=== PATIENT | female | born 1970 | race African-American/Black ===

== ENCOUNTER 2020-06-10 10:09 | Outpatient (CLI) | payer OTHER, SELFPAY ==
--- NOTE | ~2020-06-10 | MM_ITS ---
EXAMINATION: MM screening juliane BI w joy HISTORY: Screening mammogram TECHNIQUE: Craniocaudal and mediolateral oblique 3-D tomosynthesis images were obtained and synthetic 2-D images were generated. CAD analysis was submitted and interpreted. COMPARISON: 06/03/2019, 04/17/2018, 04/05/2017 bilateral digital screening mammogram examinations BREAST PARENCHYMAL COMPOSITION: There are scattered areas of fibroglandular density. FINDINGS: There are scattered bilateral benign calcifications. Benign circumscribed opacity in the mi d to lower outer right breast measuring up to 8 x 4.5 mm is most consistent with a benign intramammar y lymph node, stable. Probable benign intramammary lymph node in the left axillary tail. Small stable probable benign intramammary lymph nodes in the lower outer left breast. There is no evidence of tatum picious mass, calcification, or architectural distortion to suggest malignancy in either breast. Ther e has been no suspicious interval change. IMPRESSION: 1. No mammographic evidence of malignancy. 2. Recommend routine screening mammography in one year. BI-RADS Category 2: Benign finding(s). Reviewed, dictated and finalized at location A. S DEVELOPMENT REPRESENTATIVE
== END 2020-06-10 10:10 | disposition home or self-care (01) ==
LOC: ANHIMG 10:13
PROVIDERS: PCP Internal Medicine; Visit Provider Obstetrics & Gynecology
DX: Z12.31 Encounter for screening mammogram for malignant neoplasm of breast (principal)
CPT/HCPCS: 77063; 77067

== ENCOUNTER 2021-07-08 11:09 | Outpatient (CLI) | payer OTHER, SELFPAY ==
--- NOTE | ~2021-07-08 | MM_ITS ---
EXAMINATION: MM screening juliane BI w joy HISTORY: Screening mammogram TECHNIQUE: Craniocaudal and mediolateral oblique 3-D tomosynthesis images were obtained and synthetic 2-D images were generated. Bilateral rotated lateral cc views. CAD analysis was submitted and interp reted. COMPARISON: 06/10/2020, 06/03/2019, 04/17/2018 bilateral screening mammogram examinations BREAST PARENCHYMAL COMPOSITION: There are scattered areas of fibroglandular density. FINDINGS: Stable 4.7 mm benign-appearing circumscribed lymph node, outer mid upper right breast Suggestion of a 6 mm mass at mid depth central right breast. Diagnostic right mammogram and right too ast ultrasound examination are recommended. Stable circumscribed approximately 9 mm lymph node in the very posterior upper outer left breast. IMPRESSION: 1. 6 mm mass at mid depth in the central right breast; 2. Diagnostic right mammogram and right breast ultrasound examination are recommended. BI-RADS Category 0: Incomplete: Needs additional imaging evaluation. Reviewed, dictated and finalized at location A. CTOR OF GOVERNMENT SALES IMPRESSION: 1. 6 mm mass at mid depth in the central right breast; 2. Diagnostic right mammogram and right breast ultrasound examination are recom mended. BI-RADS Category 0: Incomplete: Needs additional imaging evaluation.
== END 2021-07-08 11:10 | disposition home or self-care (01) ==
LOC: ANHIMG 11:13
PROVIDERS: PCP Internal Medicine; Visit Provider Obstetrics & Gynecology
DX: Z12.31 Encounter for screening mammogram for malignant neoplasm of breast (principal); R92.8 Other abnormal and inconclusive findings on diagnostic imaging of breast
CPT/HCPCS: 77063; 77067

== ENCOUNTER 2021-07-21 13:10 | Outpatient (CLI) | payer OTHER, SELFPAY ==
--- NOTE | ~2021-07-21 | MMUS_ITS ---
EXAMINATION: MM diagnostic juliane RT w joy, US breast RT limited HISTORY: Right breast mass on screening mammogram TECHNIQUE: Additional 3-D tomosynthesis images of the right breast were performed and synthetic 2-D i mages were generated. CAD analysis was submitted and interpreted. High resolution limited right breas t ultrasound was performed. COMPARISON: 07/08/2021, 06/10/2020, 06/03/2019 FINDINGS: MAMMOGRAPHIC FINDINGS: There is a 7 mm oval, low-density, obscured mass at the 9:00 location 7 cm from the nipple. No suspic ious calcification or architectural distortion are identified. ULTRASOUND: There is a 5 mm cyst at the 9:00 location 3 cm from the nipple. IMPRESSION: 1. No mammographic or sonographic evidence of malignancy. 2. Recommend routine screening mammography in one year. BI-RADS Category 2: Benign finding(s). Reviewed, dictated and finalized at location A. D POWER MECHANIC IMPRESSION: 1. No mammographic or sonographic evidence of malignancy. 2. Recommend routine screening mammography in one year. BI-RADS Category 2: Benign finding(s).
== END 2021-07-21 13:11 | disposition home or self-care (01) ==
LOC: ANHIMG 13:11
PROVIDERS: PCP Internal Medicine; Visit Provider Obstetrics & Gynecology
DX: R92.8 Other abnormal and inconclusive findings on diagnostic imaging of breast (principal)
CPT/HCPCS: 76642; 77061; 77065; G0279

== ENCOUNTER 2022-04-30 12:48 | Outpatient (CLI) | payer OTHER, SELFPAY ==
--- NOTE | ~2022-04-30 | MMUS_ITS ---
EXAMINATION: MM diagnostic juliane RT w joy, US breast RT complete HISTORY: Follow-up right breast mass TECHNIQUE: Additional 3-D tomosynthesis images of the right breast were performed and synthetic 2-D i mages were generated. CAD analysis was submitted and interpreted. High resolution complete right adrianna st ultrasound was performed. COMPARISON: Comparison to multiple prior studies sequentially, with oldest reviewed study dated 03/20. BREAST PARENCHYMAL COMPOSITION: The breasts are heterogeneously dense, which may obscure small masses FINDINGS: MAMMOGRAPHIC FINDINGS: There is a lymph node in the mid outer aspect of the right breast, unchanged. No suspicious masses, c alcifications or architectural distortion in the right breast to suggest malignancy. ULTRASOUND: Complete bilateral US of all 4 quadrants of the right and retroareolar region was reviewed. At 3:00 t here is a 4 mm cyst. 9:00, 7 cm from the nipple there is a 9 mm intramammary lymph node corresponding to the mammographic finding. No suspicious masses to suggest malignancy. IMPRESSION: 1. No evidence for malignancy in the right breast. Benign findings. 2. Routine yearly screening mammogram and regular clinical breast examination are recommended. BI-RADS Category 2: Benign finding(s). Reviewed, dictated and finalized at location B. NCED PRACTICE PROVIDER IMPRESSION: 1. No evidence for malignancy in the right breast. Benign findings. 2. Routine yearly screening mammogram and regular clinical breast examination a re recommended. BI-RADS Category 2: Benign finding(s).
== END 2022-04-30 12:49 | disposition home or self-care (01) ==
LOC: ANHIMG 12:53
PROVIDERS: PCP Internal Medicine
DX: R92.8 Other abnormal and inconclusive findings on diagnostic imaging of breast (principal); C34.2 Malignant neoplasm of middle lobe, bronchus or lung
CPT/HCPCS: 76641; 77061; 77065; G0279

== ENCOUNTER 2022-07-27 10:16 | Outpatient (CLI) | payer OTHER, SELFPAY ==
--- NOTE | ~2022-07-27 | MM_ITS ---
EXAMINATION: MM screening juliane BI w joy HISTORY: Screening mammogram TECHNIQUE: Craniocaudal, rotated lateral craniocaudal and mediolateral oblique 3-D tomosynthesis imag es were obtained and synthetic 2-D images were generated. CAD analysis was submitted and interpreted. COMPARISON: 04/30/2022 diagnostic right mammogram and complete right breast ultrasound examination 3. right diagnostic mammogram and limited right breast ultrasound To, 06/10/2020, 06/03/2019 bilateral screening mammogram examinations BREAST PARENCHYMAL COMPOSITION: There are scattered areas of fibroglandular density. FINDINGS: There is no evidence of suspicious mass, calcification, or architectural distortion to sugg est malignancy in either breast. There has been no suspicious interval change. IMPRESSION: 1. No mammographic evidence of malignancy. 2. Recommend routine screening mammography in one year. BI-RADS Category 1: Negative Reviewed, dictated and finalized at location B. RVISOR ELECTRIC MOTOR TESTING
== END 2022-07-27 10:17 | disposition home or self-care (01) ==
LOC: ANHIMG 10:20
PROVIDERS: PCP Internal Medicine; Visit Provider Obstetrics & Gynecology
DX: Z12.31 Encounter for screening mammogram for malignant neoplasm of breast (principal)
CPT/HCPCS: 77063; 77067

== ENCOUNTER 2023-09-02 07:25 | Outpatient (CLI) | payer OTHER, SELFPAY ==
--- NOTE | ~2023-09-02 | MM_ITS ---
EXAMINATION: MM screening juliane BI w joy HISTORY: Screening TECHNIQUE: Craniocaudal and mediolateral oblique 3-D tomosynthesis images were obtained and synthetic 2-D images were generated. CAD analysis was submitted and interpreted. COMPARISON: Comparison to multiple prior studies sequentially, with oldest reviewed study dated 06/10. BREAST PARENCHYMAL COMPOSITION: Dense: The breasts are heterogeneously dense, which may obscure small masses FINDINGS: There is no evidence of suspicious mass, calcification, or architectural distortion to sugg est malignancy in either breast. There has been no suspicious interval change. IMPRESSION: 1. No mammographic evidence of malignancy. 2. Recommend routine screening mammography in one year. BI-RADS Category 1: Negative Reviewed, dictated and finalized at location A.
== END 2023-09-02 07:26 | disposition home or self-care (01) ==
LOC: ANHIMG 07:34
PROVIDERS: PCP Internal Medicine; Visit Provider Obstetrics & Gynecology
DX: Z12.31 Encounter for screening mammogram for malignant neoplasm of breast (principal)
CPT/HCPCS: 77063; 77067

== ENCOUNTER 2024-09-05 09:13 | Outpatient (CLI) | payer OTHER, SELFPAY ==
--- NOTE | ~2024-09-05 | MM_ITS ---
EXAMINATION: MM screening juliane BI w joy HISTORY: Screening TECHNIQUE: Craniocaudal and mediolateral oblique 3-D tomosynthesis images were obtained and synthetic 2-D images were generated. CAD analysis was submitted and interpreted. COMPARISON: Comparison to multiple prior studies sequentially, with oldest reviewed study dated 06/10. BREAST PARENCHYMAL COMPOSITION: Not dense: There are scattered areas of fibroglandular density. FINDINGS: There is developing asymmetry in the upper outer quadrant of the right breast, middle third . The left breast is stable without evidence for malignancy. IMPRESSION: 1. Developing asymmetry in the upper outer quadrant of the right breast. 2. Additional mammographic views and possible breast ultrasound are recommended. BI-RADS Category 0: Incomplete: Needs additional imaging evaluation. Reviewed, dictated and finalized at location A. IMPRESSION: 1. Developing asymmetry in the upper outer quadrant of the right breast. 2. Additional mammographic views and possible breast ultrasound are recommended . BI-RADS Category 0: Incomplete: Needs additional imaging evaluation.
--- OUTSIDE RECORDS SUMMARY | 2024-09-05 09:16 | XMS_ITS | Encounter Summary ---
Author Organization [facility] Healthcare Address [address] [place] [address] Care Team Providers Care Haunted History Tour Guide Name Role Phone Eber Tomlinson MD Primary Care Provider [phone] Long Mehta MD Unavailable Héctor Sanford MD Unavailable [phone] Se Torres MD Unavailable [phone] Huong Klein NP Unavailable [phone] Foster Borrero MD PhD Unavailable [phone] Sergio He MD Unavailable [phone] Eber Tomlinson MD Primary Care Provider [phone] Encounter Details Date Type Department Care Team (Late st Contact Info) Description 06/24/2024 Documentation [facility] [address] [facility] [address] [place] [address] Gilda Galloway RMA Social History Tobacco Use Types Packs/Day Years Used Date Smoking Tobacco: Never Smokeless Tobacco: Never Alcohol Use Standard Drinks/Week Comments Never 0 (1 standard drink = 0.6 oz pur e alcohol) AUDIT-C Answer Date Recorded Frequency of Alcohol Consumption Not on file 04/21/2024 Q2: How many drinks containi ng alcohol do you have on a typical day when you are drinking? 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 Gender Identity Not on file Sexual Orientation Not on file documented as of this encounter Plan of Treatment Not on file documented as of this encounter Visit Diagnoses Not on filedocumented in this encounter Care Teams Haunted History Tour Guide Relationship Specialty Start Date End Date Eber Tomlinson MD PCP - General 11/24/15 07/21/24 Eber [place] [address] [place] [address] PCP - General Internal Medicine 07/22/24 Long Mehta MD [address] [facility] [address] [place] [address] Consulting Physician Radiation Oncology 10/05/19 Héctor Sanford MD [address] [place] [address] [place] [address] Consulting Physician Endocrinology 08/08/20 Se Torres MD [address] [place] [address] [place] [address] Referring Physician Neurosurgery 08/08/20 Huong Klein, SNATH HANDLE ASSEMBLER [address] [place] [address] [place] [address] Nurse Practitioner Medical Oncology 04/05/21 Foster Borrero MD PhD [address] [place] [address] Consulting Physician Medical Oncology 09/19/21 Sergio He MD [address] [address] Referring Physician Obstetrics and Gynecology 04/10/22 documented as of this encounter
--- OUTSIDE RECORDS SUMMARY | 2024-09-05 09:16 | XMS_ITS | Encounter Summary ---
Author Organization [facility] Address [address] [place] [address] Phone Care Team Providers Care Track Repairer Name Role Phone Eber Tomlinson MD Primary Care Provider [phone] Long Mehta MD Unavailable Héctor Sanford MD Unavailable [phone] Se Torres MD Unavailable [phone] Huong Klein NP Unavailable [phone] Foster Borrero MD PhD Unavailable Sergio He MD Unavailable [phone] Eber Tomlinson MD Primary Care Provider Encounter Details Date Type Department Care Team (Late st Contact Info) Description 04/24/2024 Social Work [facility] Oncology [facility] [address] [place] [address] Catalina Galicia LCSW Social History Tobacco Use Types Packs/Day Years [...] on file 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 Gender Identity Not on file Sexual Orientation Not on file documented as of this encounter Plan of Treatment Not on file documented as of this encounter Visit Diagnoses Not on filedocumented in this encounter Care Teams Track Repairer Relationship Specialty Start Date End Date Eber Tomlinson MD PCP - General 11/24/15 07/21/24 Eber Tomlinson MD [address] [place] [address] PCP - General Internal Medicine 07/22/24 Long Mehta MD [address] [facility] [address] [place] [address] Consulting Physician Radiation Oncology 10/05/19 Héctor Sanford MD [address] [place] [address] [place] [address] Consulting Physician Endocrinology 08/08/20 Se Torres MD [address] [place] [address] [place] [address] Referring Physician Neurosurgery 08/08/20 Huong Klein, DIRECTOR MEDICAL WRITING [address] [place] [address] Nurse Practitioner Medical Oncology 04/05/21 Foster Borrero MD PhD [facility] [address] Consulting Physician Medical Oncology 09/19/21 Sergio eH MD [address] [address] Referring Physician Obstetrics and Gynecology 04/10/22 documented as of this encounter
--- OUTSIDE RECORDS SUMMARY | 2024-09-05 09:16 | XMS_ITS | Clinical Summary ---
Author Organization [facility] [employer] Address [address] [place] [address] Phone Care Team Providers Care Shipping And Receiving Specialist Name Role Phone Long Mehta MD Unavailable Héctor Sanford MD Unavailable [phone] Se Torres MD Unavailable [phone] Huong Klein NP Unavailable [phone] Foster Borrero MD PhD Unavailable Sergio He MD Unavailable [phone] Eber Tomlinson MD Primary Care Provider [phone] Allergies No known active allergies Medications cholecalcifer ol (VITAMIN D-3) 2000 unit capsule Take 1 capsule (2,000 Units total) by mouth daily Active levETIRAcetam (KEPPRA) 500 mg tablet Take 1 tablet by mouth twice daily 180 tablet 3 10/17/19 24 025 Active UNABLE TO FIND daily Med Name:weight loss gummies Active amLODIPine (NORVASC) 2.5 mg tabletIndicat ions:Hyperten rodrick, essential Take 1 tablet by mouth once daily 90 tablet 1 06/26/19 25 Active potassium chloride ER 10 mEq CR tabletIndicat ions:Hypokale milena Take 1 tablet by mouth twice daily 60 tablet 08/10/19 25 Active lorlatinib (Lorbrena) 25 mg tabletIndicat ions:Malignan t neoplasm of middle lobe of right lung (HCC),Maligna nt neoplasm metastatic to brain (HCC) TAKE TWO TABLETS (50MG) BY MOUTH EVERY OTHER DAY . TAKE AT APPROXIMATELY THE SAME TIME EACH DAY WITH 8 OUNCES OF WATER 30 tablet 1 08/18/19 25 Active lorlatinib (LORBRENA) 25 mg tabletIndicat ions:Malignan t neoplasm of middle lobe of right lung (HCC),Maligna nt neoplasm metastatic to brain (HCC) Take 2 tablets (50 mg total) by mouth every other day Take at approximately the same time each day with 8 ounces of water. 30 tablet 1 06/25/19 25 025 Discontinued potassium chloride ER 10 mEq CR tabletIndicat ions:Hypokale milena Take 1 tablet by mouth twice daily 60 tablet 07/06/19 25 025 Discontinued Active Problems Problem Noted Date Diagnosed Date Vitamin D deficiency 04/08/2020 Assessment & Plan (02/08/2023 10:16 AM CDT): Patient on OTC vitamin D-3 Last GFR 98 on 01/22/23 - continue same dose of Vitamin D-3 Assessment & Plan (08/03/2022 10:28 AM CDT): Patient on OTC vitamin D-3 Last GFR 98 on 07/26/22 - continue same dose of Vitamin D-3 Assessment & Plan (02/02/2022 2:00 PM CDT): Patient on OTC vitamin D-3 Last calcium was 10.4 with GFR 104 on 01/10/22 - continue same dose of Vitamin D-3 Assessment & Plan (02/03/2021 3:53 PM CDT): Patient on OTC vitamin D-3 Last calcium was 9.6 with normal GFR 89 on 01/06/21 - continue same dose of Vitamin D-3 Assessment & Plan (07/15/2020 3:26 PM CONVEYOR BELT REPAIRER): Low vitamin D of 25 in February/2020 Plan: Continue Vitamin D3- 2000 international units/day Check level with next blood test Assessment & Plan (04/08/2020 3:31 PM CONVEYOR BELT REPAIRER): Low vitamin D of 25 in February/2020 Plan: Start Vitamin D3- 2000 international units/day We will recheck levels in 3 month Thyroid nodule 03/18/2020 Assessment & Plan (02/08/2023 10:05 AM CDT): Patient with family history of thyroid disease Found to have thyroid nodule on CT scan Thyroid Ultrasound on 04/07/20 Thyroid cysts 6-7 mm Patient is clinically euthyroid TSh was 1.35 on 04/07/20 Plan: We will monitor clinically. Assessment & Plan (08/03/2022 10:31 AM CDT): Patient with family history of thyroid disease Found to have thyroid nodule on CT scan Thyroid Ultrasound on 04/07/20 Thyroid cysts 6-7 mm Patient is clinically euthyroid TSh was 1.35 on 04/07/20 Plan: We will monitor clinically. Assessment & Plan (02/02/2022 2:00 PM CDT): Patient with family history of thyroid disease Found to have thyroid nodule on CT scan Thyroid Ultrasound on 04/07/20 Thyroid cysts 6-7 mm Patient is clinically euthyroid TSh was 1.35 on 04/07/20 Plan: We will monitor clinically. Assessment & Plan (02/03/2021 3:51 PM CDT): Patient with family history of thyroid disease Found to have thyroid nodule on CT scan Thyroid Ultrasound on 04/07/20 Thyroid cysts 6-7 mm Patient is clinically euthyroid TSh was 1.35 on 04/07/20 Plan: We will monitor clinically. Assessment & Plan (07/15/2020 3:27 PM CONVEYOR BELT REPAIRER): Patient with family history of thyroid disease Found to have thyroid nodule on CT scan Thyroid Ultrasound on 04/07/20 Thyroid cysts 6-7 mm Patient is clinically euthyroid TSh was 1.35 on 04/07/20 Plan: Explained to patient the findings on Ultrasound The cyst/nodule is small and looks benign The abnormality can be monitored and if needed can have ultrasound in one year Assessment & Plan (04/08/2020 3:33 PM CONVEYOR BELT REPAIRER): Patient with family history of thyroid disease Found to have thyroid nodule on CT scan Thyroid Ultrasound on 04/07/20 Thyroid cysts 6-7 mm Patient is clinically euthyroid TSh was 1.35 on 04/07/20 Plan: Explained to patient the findings on Ultrasound The cyst/nodule is small and looks benign The abnormality can be monitored and if needed can have ultrasound in one year Assessment & Plan (03/18/2020 1:43 PM CDT): Recent thyroid nodule noted on CT scan of her chest. This finding was compared to previous CT scans in November and September in this is a new finding. On exam patient appears to have on enlarged thyroid. She has also had weight gain. Patient of the thyroid ultrasound schedule at [facility] for March 24, 2020. Referral to Endocrinology. Hyperparathyroidism 03/18/2020 Assessment & Plan (04/17/2024 5:57 PM CONVEYOR BELT REPAIRER): Renal function calcium level in normal range no additional testing or therapy indicated Assessment & Plan (03/31/2023 5:31 PM CONVEYOR BELT REPAIRER): Patient's conditions min stable for last 3 years he has advised the patient she may follow-up with primary care I have reviewed Dr. Sanford notes will continue to monitor his outlined in his notes. Calcium and kidney functions annualy Assessment & Plan (02/08/2023 10:15 AM CDT): History of Elevated PTH of 76 on 03/04/20 Normal calcium of 9.9 Low Vitamin D of 25 Normal GFR 68 This is most probably secondary to vitamin D deficiency Last PTH was normal at 38 on 08/05/20 Calcium went down from 10.8 to 9.9 on 01/22/23 since she has been off HCTZ Plan No follow up needed with me Check calcium and kidney functions per PCP or once /year Assessment & Plan (08/03/2022 10:30 AM CDT): History of Elevated PTH of 76 on 03/04/20 Normal calcium of 9.9 Low Vitamin D of 25 Normal GFR 68 This is most probably secondary to vitamin D deficiency Last PTH was normal at 38 on 08/05/20 Last calcium was high at 10.8 Plan This could be caused by HCTZ We will check with PCP if he can change HCTZ to another diuretic like lasix or different BP medication We will monitor calcium levels. Assessment & Plan (02/02/2022 2:09 PM CDT): History of Elevated PTH of 76 on 03/04/20 Normal calcium of 9.9 Low Vitamin D of 25 Normal GFR 68 This is most probably secondary to vitamin D deficiency Last PTH was normal at 38 on 08/05/20 Plan Continue Vitamin D 3 Discontinue multivitamin. We will monitor calcium levels. Assessment & Plan (02/03/2021 3:52 PM CDT): History of Elevated PTH of 76 on 03/04/20 Normal calcium of 9.9 Low Vitamin D of 25 Normal GFR 68 This is most probably secondary to vitamin D deficiency Last TH was normal at 38 on 08/05/20 Plan Continue Vitamin D 3 Assessment & Plan (07/15/2020 3:25 PM CONVEYOR BELT REPAIRER): Elevated PTH of 76 on 03/04/20 Normal calcium of 9.9 Low Vitamin D of 25 Normal GFR 68 This is most probably secondary to vitamin D deficiency Plan Continue Vitamin D 3 We will monitor calcium and PTH Assessment & Plan (04/08/2020 3:30 PM CONVEYOR BELT REPAIRER): Elevated PTH of 76 on 03/04/20 Normal calcium of 9.9 Low Vitamin D of 25 Normal GFR 68 This is most probably secondary to vitamin D deficiency Plan We will correct vitamin D level We will monitor calcium and PTH Assessment & Plan (03/18/2020 1:48 PM CDT): Patient's saw her pit laborer oncologist at [facility] on 03/04/2020 in his note he references to she has a out slightly elevated PTH/68 and low vitamin-D/25 and states he wants her to follow-up with Endocrinology. This patient has lung cancer with metastasis to her brain. She lives in [place] and she does not drive at this time secondary to seizure and is convenient for her to go to [facility] for Endocrinology appointment as opposed going back to [place].. Patient also has a thyroid nodule of recent finding of a CT scan. Thyroid ultrasound scheduled for 03/24/2020. Patient is referred to Endocrinology for both reasons. Malignant neoplasm of middle lobe of right lung 04/09/2019 Cancer Staging:Clinical stage from 04/09/2019:Stage IVB(cT4, cN2, pM1c) - Signed by Idalmis Webber MD on 04/09/2019 Malignant neoplasm metastatic to brain 9 Family history of colon cancer 03/07/2018 Assessment & Plan (09/16/2020 5:36 PM CDT): Patient is referred for colonoscopy secondary to family history as well as recent PET scan shows activity in the anal area. Assessment & Plan (03/07/2018 5:29 PM CDT): Patient's shingle catcher referred this patient a [facility] for colonoscopy. Approval is pending. Recommendations by some aches versus get a colonoscopy starting age 45. THIS PATIENT HAD A AND TO AGE 52 FROM COLON CANCER. Patient also given information regarding colon Guard. Other abnormal glucose 11/30/2016 Assessment & Plan (03/13/2019 1:03 PM CDT): Patient's abnormal HgbA1c of 5.7 on this occasion previously 5.8 may be related to the effects of hydrochlorothiazide. I discontinue hydrochlorothiazide when she finished her 90 day supply and will replace with lisinopril. We follow HgbA1c in 6 months. Assessment & Plan (03/07/2018 5:28 PM CDT): Patient's his previous hemoglobin HgbA1c was 5.8 she has put on 9 lb since her last visit. Will check hemoglobin HgbA1c today. Patient advised body mass index is 27.9 to his equivalent to a classification overweight but not obese Assessment & Plan (11/30/2016 10:17 AM CDT): Patient previously had a slightly elevated glucose and a hemoglobin HgbA1c was borderline. Patient has lost weight will repeat hemoglobin HgbA1c today. Fact weight loss been close to 20 pounds with a past year on purpose weight loss. Hypertension, essential 11/30/2016 Assessment & Plan (04/17/2024 6:00 PM CONVEYOR BELT REPAIRER): Blood pressure 140/88 pressures at home have been better patient's blood pressure still is in no acceptable range will continue amlodipine 2.5 mg daily. Patient's renal functions reviewed within normal range. Assessment & Plan (09/27/2023 3:38 PM CDT): Patient's blood pressure remains well controlled patient is tolerating medications. She is taking amlodipine 2.5 mg daily. Assessment & Plan (03/31/2023 5:27 PM CONVEYOR BELT REPAIRER): Hypertension very well controlled patient tolerating medications no change in therapy. Assessment & Plan (02/08/2023 10:17 AM CDT): Controlled with medication - continue treatment plan per PCP Assessment & Plan (11/10/2022 2:20 PM CDT): Patient's hypertension is controlled she does any edema she would like to change from a diuretic to a different blood pressure medication. Diuretics Mouna going to the bathroom too often. Changes person from furosemide 40 mg a day to amlodipine 2.5 mg per day. Patient's advised she may get a small degree of swelling with the amlodipine as a side effect this sudden him we can adjustments to in the event occurs patient has no symptoms referable to hypertension. Assessment & Plan (09/30/2021 1:46 PM CDT): Hypertension remains well control on present medications Assessment & Plan (03/31/2021 6:28 PM CONVEYOR BELT REPAIRER): Blood pressure slightly decreased today she feels well. Continue present therapy Assessment & Plan (09/16/2020 5:34 PM CDT): Blood pressure well controlled patient is now on potassium secondary to hydrochlorothiazide medication for blood pressure. Concerns regarding this. Advised her I will repeat potassium level next month.. Like to minimize number medication she is takes she is advised the orange juice may just as well as potassium tablet. Assessment & Plan (03/18/2020 1:53 PM CDT): Blood pressure well controlled patient is tolerating present medication no change in therapy. Patient is on hydrochlorothiazide 25 mg daily. Assessment & Plan (03/13/2019 1:02 PM CDT): Patient's blood pressure is very well controlled tolerating medications.. She is on hydrochlorothiazide she runs slightly abnormal glucose which can be a result of hydrochlorothiazide.. At this time discontinue hydrochlorothiazide when she finishes her 90 day supply.. This will be replaced with lisinopril 5 mg daily. Repeat HgbA1c is 6 months at her next visit. Patient's advised the reason for the change in the fact that lisinopril has a 10% chance cause a cough. We also discussed the angioedema this very very rare with lisinopril. Assessment & Plan (03/07/2018 5:27 PM CDT): Hypertension is unchanged. Continue current treatment regimen. Dietary sodium restriction. Regular aerobic exercise. Continue current medications. Blood pressure will be reassessed at the next regular appointment. Assessment & Plan (11/30/2016 10:16 AM CDT): Hypertension is unchanged. Continue current treatment regimen. Blood pressure will be reassessed at the next regular appointment. Patient's blood pressure well controlled, systolic approximately 20 points lower at home that is a new office, diastolics about 10 points lower at home than in his in office. Preventative health care 11/30/2016 Assessment & Plan (09/27/2023 3:37 PM CDT): History and physical exam completed health risk assessment health maintenance reviewed and addressed. Oncology visit notes reviewed. New change since her last visit with me she is having some left lower leg weakness sensation of feeling off balance. She has been referred to physical therapy [facility] this has been 2 months she has not been able to get in to see them appears though his so mad of insurance approval. No other new problems patient has not gotten her immunization is suggested a year ago. This may also relate to her insurance. Assessment & Plan (06/22/2022 4:55 PM CONVEYOR BELT REPAIRER): 51-year-old lady here for annual exam her last visit with me she is had to retire medical reasons. She took neuropsychological testing failed exam. Press patient's is explain to me is will be in effect till August. We will be looking for new insurance following that. She will be going on long-term disability forms to be mailed to each physician. Underlying illnesses metastatic brain cancer from her lungs. Patient feels well main problem is speech.. Has gained some I do not know if his secondary to inactivity after quitting job or medication related Assessment & Plan (09/30/2021 1:45 PM CDT): History and physical completed patient's health risk assessment health maintenance reviewed. Patient has metastatic lung cancer to her brain. She was having side effects of medication reviewed recent Oncology report. Patient advised me his speech is clearing up she is doing much better. She has a follow-up appoint with Oncology next week. All side of her metastatic lung cancer in medication problems remainder of her exam and history is benign. Assessment & Plan (03/18/2020 1:42 PM CDT): History and physical completed health risk assessment health maintenance reviewed in addressed. Patient recently start shingle catcher was records and he not yet available in the chart.. Patient's flu shot is updated for 2019. Patient's history is significant for malignant neoplasm with metastasis to her brain. Patient is doing very very well she has return to work after being out of work 6 months. She is presently on restrictions for driving for the next 6 months due possible seizure activity. Assessment & Plan (03/13/2019 1:01 PM CDT): Patient physical completed patient's health risk assessment health maintenance reviewed. Patient given Tdap today. Request the patient's records from gynecology is update her Pap smear results. Assessment & Plan (03/07/2018 5:31 PM CDT): Patient exam was completed unremarkable.. Discussion regarding body mass index were discussion regarding colon cancer she has a family member at a young age from colon cancer. Continue to monitor hemoglobin HgbA1c continue treat her blood pressure. Assessment & Plan (11/30/2016 10:18 AM CDT): CBC, CMP and fasting lipid profile admission for preventive exam patient also has hypertension well controlled Encounters Date Type Department Care Team Description 08/18/2024 Orders Only [facility] Oncology [address] [place] [address] [address] [place] [address] Foster Borrero MD PhD 08/17/2024 Orders Only [facility] Oncology [address] [place] [address] [address] [place] [address] Isela Ayala RN 08/07/[address] [facility] Neurosurgery [facility] Floor 1, [address] [place] [address] Se Torres MD 08/07/[address] [facility] Neurosurgery [facility] Floor 1, [address] [place] [address] Se Torres MD 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) 08/06/2024 2:[address] [facility] Neurosurgery [facility] Floor 1, [address] [place] [address] Se Torres MD 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) 08/04/2024 2:28 PM CDT - 08/04/2024 11:59 PM CDT Hospital Encounter [facility] [address] [place] [id number] Se Torres MD Malignant neoplasm metastatic to brain (HCC) Discharge Disposition: Discharge to home or self care 07/21/2024 1:15 PM CONVEYOR BELT REPAIRER Office Visit [facility] Oncology [address] [place] [address] Foster Borrero MD PhD 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); Malignant neoplasm of middle lobe of right lung (HCC) 07/14/2024 7:48 AM CONVEYOR BELT REPAIRER - 07/14/2024 11:59 PM CONVEYOR BELT REPAIRER Hospital Encounter [facility] [address] [place] [id number] Malignant neoplasm of middle lobe of right lung (HCC) Discharge Disposition: Discharge to home or self care 07/14/2024 7:45 AM CONVEYOR BELT REPAIRER Lab [address] [address] Malignant neoplasm of middle lobe of right lung (HCC) 07/14/[address] [facility] Physicians [facility] Oncology [address] [facility] [address] [place] [address] Rashmi Wilder, [facility] 07/13/[address] [address] Yasmine Radn 06/25/2024 Orders Only [facility] Oncology [address] [place] [address] Foster Borrero MD PhD 06/24/2024 Documentation [facility] [address] [facility] [address] [place] [address] Gilda Galloway RMA from Last 3 Months Immunizations Immunization Administration Dates Next Due Influenza, Quadrivalent, Abida l Culture-based MDCK, Preservative Free, Antibiotic Free, Intramuscular 03/04/2020 Influenza, Quadrivalent, Spl it, Preservative Free, Intramuscular 03/31/2021 Influenza, Unspecified 04/03/2024(Deferred: Marika ent Refused) Moderna SARS-CoV-2 Monovalen t Vaccination (12+ YRS) 10/18/2020,10/18/2020,09/20/2020,09/20 Tdap 03/13/2019 Surgical History Surgery Date Site/Laterality Comments SECTION COLONOSCOPY 12/29/2020 1st Medical History Medical History Date Comments Cancer (HCC) Lung cancer metastatic to brain (HCC) Family History Medical History Relation Name Comments Hypertension Maternal Grandmother Hypertension Mother Colon cancer Mother's Sister Thyroid disease Sister Relation Name Status Comments Maternal Grandmother Mother Mother's Sister Sister Social History Tobacco Use Types Packs/Day Years Used Date Smoking Tobacco: Never Smokeless Tobacco: Never Tobacco Cessation:Counseling Given: Not Answered Alcohol Use Standard Drinks/Week Comments Never 0 [...] on file Legal Sex Female 7:47 AM CONVEYOR BELT REPAIRER Gender Identity Not on file Sexual Orientation Not on file Obstetrics History Last Filed Vital Signs Vital Sign Reading Time Taken Comments Blood Pressure 129/84 07/21/2024 1:24 PM CONVEYOR BELT REPAIRER Pulse 87 07/21/2024 1:24 PM CONVEYOR BELT REPAIRER Temperature 37.3 C (99.2 F) 07/21/2024 1:24 PM CONVEYOR BELT REPAIRER Respiratory Rate 18 07/21/2024 1:24 PM CONVEYOR BELT REPAIRER Oxygen Saturation 98% 07/21/2024 1:24 PM CONVEYOR BELT REPAIRER Inhaled Oxygen Concentration - - Weight 93.1 kg (205 lb 3.2 oz) 07/21/2024 1:24 P M CONVEYOR BELT REPAIRER no shoes Height 167.6 cm (5' 6 ) 07/21/2024 1:24 PM CONVEYOR BELT REPAIRER Body Mass Index 33.12 07/21/2024 1:24 PM CONVEYOR BELT REPAIRER Plan of Treatment Health Maintenance Due Date Last Done Comments Cervical Cancer Screening 1970 Pneumococcal vaccine <65 (1 of 2 - PCV) 12/16/1991 Zoster Vaccine (1 of 2) 12/16/1991 Breast Cancer Screening-Mammogram 04/30/2023 022 Covid-19 Vaccine (2023-2 5 season) 2024 10/18/2020, 10/18/2020, 09/20/2020, Additional history exists Depression Screening 09/26/2024 09/27/2023, 06/22/2022, 09/29/2021, Additional history exists Regular Well Visit/Exam 18-64 09/26/2024, 06/22/2022, 09/29/2021, Additional history exists Influenza Vaccine (Season Ended) 2025 03/31/20 21, 03/04/2020 DTaP/Tdap/Td Vaccine (2 - Td or Tdap) 03/13/2029 03/13/2019 Colon Cancer Screening-Colonoscopy 12/29/2030 12/29/2020 Hepatitis B Screening Discontinued Hepatitis C Screening Discontinued Procedures Procedure Name Priority Date/Time Associated Diagnosis Comments MRI BRAIN W WO CONTRAST Schedule Routine, Read Routine (OP Routine) 08/04/2024 4:48 PM CDT Malignant neoplasm metastatic to brain (HCC) CT CHEST ABDOMEN PELVIS W CONTRAST Schedule Routine, Read Routine (OP Routine) 07/14/2024 9:03 AM CONVEYOR BELT REPAIRER Malignant neoplasm of middle lobe of right lung (HCC) EGFR Routine 07/14/2024 7:54 AM CONVEYOR BELT REPAIRER Malignant neoplasm of middle lobe of right lung (HCC) DIFFERENTIAL AUTO Routine 07/14/2024 7:5 4 AM CONVEYOR BELT REPAIRER Malignant neoplasm of middle lobe of right lung (HCC) CBC WITH AUTO DIFFERENTIAL Routine 07/14/2024 7:54 AM CONVEYOR BELT REPAIRER Malignant neoplasm of middle lobe of right lung (HCC) COMPREHENSIVE METABOLIC PANEL Routine 07/14/2024 7:54 AM CONVEYOR BELT REPAIRER Malignant neoplasm of middle lobe of right lung (HCC) COLONOSCOPY 12/29/2020 7:27 AM CDT from Last 3 Months or Most Recently Relevant to Health Maintenance Results * MRI Brain W WO Contrast (08/04/2024 4:48 PM CDT) Anatomical Region Laterality Modality Head and Neck N/A Magnetic Resonan ce 08/05/2024 9:10 AM CDT Impressions 08/05/2024 10:58 AM CDT 1. Treated right insular and left occipital lesions are unchanged. 2. No evidence of new intracranial metastatic disease. 3. Heterogeneous appearance of the calvarium with subcentimeter foci of enhancement is unchanged for at least a year. Findings favor postradiation changes of the calvarium, however, metastatic disease is not completely excluded. It would be unusual for calvarial metastases in the absence of further osseous metastatic disease in the axial skeleton. Dictated by: Esteban Izquierdo D.O. The radiology attending physician has personally reviewed this study, and had reviewed and/or edited this written report and agrees with it. Electronically signed by: Deborah Arroyo M.D. Narrative 08/05/2024 10:58 AM CDT EXAMINATION: Magnetic resonance imaging (MRI) of the brain and brainstem without and with contrast HISTORY: 53 years-old Female with Brain metastases, assess treatment response. TECHNIQUE: Multiplanar multi-weighted MRI of the brain and brainstem was performed without and with intravenous contrast using the general brain protocol. Contrast information: 18 mL Gadoterate Meglumine IV COMPARISON: Multiple priors, the most recent dated 03/31/2024, 01/07/2024 and 09/30/2023 FINDINGS: Redemonstration of an unchanged 11 mm heterogeneously enhancing T1/T2 isointense lesion within the right french radiata and extending inferiorly to involve the insula (series 35, image 110). Redemonstration of an unchanged ill-defined 2 mm enhancing left occipital lesion (series 35, image 93). No new intracranial enhancement is identified. Both lesions demonstrate superimposed susceptibility artifact related to prior blood products. No significant surrounding FLAIR hyperintensity. Heterogeneous appearance of the calvarium with subcentimeter foci of enhancement. The superior sagittal sinus demonstrates normal venous flow. The corpus callosum is normal in shape and signal intensity. The posterior fossa is unremarkable. The pituitary and sella are normal. The brainstem and craniocervical junction are unremarkable. Fatty marrow signal within the clivus and calvarium is likely related to radiation changes. Diffusion weighted images reveal no hyperintensities to suggest acute cerebral infarction. Moderate diffuse cerebral volume loss, with expected ex vacuo dilatation of the ventricles. Scattered periventricular and subcortical white matter punctate foci of T2/FLAIR hyperintensity are nonspecific and may represent sequela of chronic small vessel ischemic disease. Cavum veli interpositi. The paranasal sinuses are normal. The visualized portions of the mastoids are unremarkable. The orbits appear normal. Normal flow voids are demonstrated in the carotid arteries and basilar artery. Procedure Note Deborah Arroyo MD - 08/05/2024 EXAMINATION: Magnetic resonance imaging (MRI) of the brain and brainstem without and with contrast HISTORY: 53 years-old Female with Brain metastases, assess treatment response. TECHNIQUE: Multiplanar multi-weighted MRI of the brain and brainstem was performed without and with intravenous contrast using the general brain protocol. Contrast information: 18 mL Gadoterate Meglumine IV COMPARISON: Multiple priors, the most recent dated 03/31/2024, 01/07/2024 and 09/30/2023 FINDINGS: Redemonstration of an unchanged 11 mm heterogeneously enhancing T1/T2 isointense lesion within the right french radiata and extending inferiorly to involve the insula (series 35, image 110). Redemonstration of an unchanged ill-defined 2 mm enhancing left occipital lesion (series 35, image 93). No new intracranial enhancement is identified. Both lesions demonstrate superimposed susceptibility artifact related to prior blood products. No significant surrounding FLAIR hyperintensity. Heterogeneous appearance of the calvarium with subcentimeter foci of enhancement. The superior sagittal sinus demonstrates normal venous flow. The corpus callosum is normal in shape and signal intensity. The posterior fossa is unremarkable. The pituitary and sella are normal. The brainstem and craniocervical junction are unremarkable. Fatty marrow signal within the clivus and calvarium is likely related to radiation changes. Diffusion weighted images reveal no hyperintensities to suggest acute cerebral infarction. Moderate diffuse cerebral volume loss, with expected ex vacuo dilatation of the ventricles. Scattered periventricular and subcortical white matter punctate foci of T2/FLAIR hyperintensity are nonspecific and may represent sequela of chronic small vessel ischemic disease. Cavum veli interpositi. The paranasal sinuses are normal. The visualized portions of the mastoids are unremarkable. The orbits appear normal. Normal flow voids are demonstrated in the carotid arteries and basilar artery. IMPRESSION: 1. Treated right insular and left occipital lesions are unchanged. 2. No evidence of new intracranial metastatic disease. 3. Heterogeneous appearance of the calvarium with subcentimeter foci of enhancement is unchanged for at least a year. Findings favor postradiation changes of the calvarium, however, metastatic disease is not completely excluded. It would be unusual for calvarial metastases in the absence of further osseous metastatic disease in the axial skeleton. Dictated by: Esteban Izquierdo D.O. The radiology attending physician has personally reviewed this study, and had reviewed and/or edited this written report and agrees with it. Electronically signed by: Deborah Arroyo M.D. Se Torres MD IM MRI PROCEDURES Final Re sult * CT chest abdomen pelvis with contrast (07/14/2024 9:03 AM CONVEYOR BELT REPAIRER) Anatomical Region Laterality Modality Body N/A Computed Tomogra phy 07/17/2024 3:42 PM CONVEYOR BELT REPAIRER Narrative 07/17/2024 4:44 PM CONVEYOR BELT REPAIRER EXAM DESCRIPTION: CT CHEST ABDOMEN PELVIS W CONTRAST REASON FOR STUDY: Restaging of lung cancer Restaging of lung cancer Hx of brain cancer diagnosed in 2019 Hx of chemo pills and radiation No chest or abdominal complaints at this time Hx of Non smoker TECHNIQUE: CT scan of the chest, abdomen, and pelvis performed with intravenous and without oral contrast using helical scanning technique with dynamic intravenous contrast injection. Reconstructed coronal and sagittal MPR images reviewed. All images stored on PACS. Automated exposure control was used as a dose optimization technique for this examination. CONTRAST TYPE/DOSE: 75mL of IOVERSOL 350 MG IODINE/ML INTRAVENOUS SYRINGE injected via intravenous COMPARISON: CT chest abdomen pelvis 04/14/2024 ; CT chest abdomen pelvis 07/25/2023 FINDINGS: CHEST LUNGS: Unchanged 3 mm subpleural nodule in the left upper lobe laterally on image 22 unchanged 3 mm nodule left upper lobe laterally image 39. There are scattered areas of subsegmental atelectasis and scarring, particularly in the right middle lobe, likely related to posttreatment change. No evidence of local disease recurrence or new pulmonary nodule. Central airways are patent. PLEURA: No effusion. No pneumothorax. MEDIASTINUM/ROGELIO: No identified masses or abnormal nodes. HEART: Heart size is normal with no pericardial effusion. VASCULATURE CHEST: No thoracic aortic aneurysm or dissection. AXILLA: No adenopathy. CHEST WALL: No masses. No subcutaneous air. HARDWARE/LINES/TUBES: None. MUSCULOSKELETAL CHEST: There are no suspicious osseous lesions. ABDOMEN/PELVIS LIVER: Normal size. No identified cystic or solid masses. GALLBLADDER: No stones identified. No wall thickening or inflammatory changes. BILE DUCTS: No intrahepatic or extrahepatic ductal dilatation. SPLEEN: Normal size. No focal lesions. PANCREAS: No identified cystic or solid masses. No significant calcifications. No adjacent inflammation or peripancreatic fluid collections. Pancreatic duct not dilated. ADRENALS: Normal. KIDNEYS/URINARY TRACT: No identified significant cystic or solid masses. No visualized stones. No hydronephrosis or hydroureter. Symmetric enhancement. Urinary bladder is unremarkable. GI: Stomach is decompressed. No dilated or thick-walled loops of bowel appreciated. There is no sign of appendicitis. No significant diverticular disease. PERITONEUM: No ascites or free air. RETROPERITONEUM: No mass or adenopathy. REPRODUCTIVE: No significant abnormality. VASCULATURE ABDOMEN: No abdominal aortic aneurysm. MUSCULOSKELETAL ABDOMEN PELVIS: Ill-defined sclerotic changes in the posterior elements of S1 and L5 could be degenerative. OTHER: No significant abnormality. IMPRESSION: 1. No evidence of local disease recurrence or metastatic disease in the chest. 2. Unchanged 3 mm nodules in the left upper lobe. 3. Ill-defined sclerotic changes in the posterior elements of S1 and L5 appear unchanged and could be due to degenerative change. Recommend attention on follow-up. THIS IS AN ELECTRONICALLY VERIFIED FINAL REPORT 07/17/2024 4:44 PM - Electronically signed by Lazaro Barrow M.D. AM: AM Report ID: [id number] Reading Location: [id number] Procedure Note Lazaro Barrow MD - 07/17/2024 EXAM DESCRIPTION: CT CHEST ABDOMEN PELVIS W CONTRAST REASON FOR STUDY: Restaging of lung cancer Restaging of lung cancer Hx of brain cancer diagnosed in 2019 Hx ofchemo pills and radiation No chest or abdominal complaints at this time Hxof Non smoker TECHNIQUE: CT scan of the chest, abdomen, and pelvis performed with intravenous and without oral contrast using helical scanning techniquewith dynamic intravenous contrast injection. Reconstructed coronal and sagittalMPR images reviewed. All images stored on PACS. Automated exposure control was used as a dose optimization technique for this examination. CONTRAST TYPE/DOSE: 75mL of IOVERSOL 350 MG IODINE/ML INTRAVENOUS SYRINGE injected via intravenous COMPARISON: CT chest abdomen pelvis 04/14/2024 ; CT chest abdomen pelvis 07/25/2023 FINDINGS: CHEST LUNGS: Unchanged 3 mm subpleural nodule in the left upper lobe laterallyon image 22 unchanged 3 mm nodule left upper lobe laterally image 39. Thereare scattered areas of subsegmental atelectasis and scarring, particularly inthe right middle lobe, likely related to posttreatment change. No evidence of local disease recurrence or new pulmonary nodule. Central airways arepatent. PLEURA: No effusion. No pneumothorax. MEDIASTINUM/ROGELIO: No identified masses or abnormal nodes. HEART: Heart size is normal with no pericardial effusion. VASCULATURE CHEST: No thoracic aortic aneurysm or dissection. AXILLA: No adenopathy. CHEST WALL: No masses. No subcutaneous air. HARDWARE/LINES/TUBES: None. MUSCULOSKELETAL CHEST: There are no suspicious osseous lesions. ABDOMEN/PELVIS LIVER: Normal size. No identified cystic or solid masses. GALLBLADDER: No stones identified. No wall thickening or inflammatory changes. BILE DUCTS: No intrahepatic or extrahepatic ductal dilatation. SPLEEN: Normal size. No focal lesions. PANCREAS: No identified cystic or solid masses. No significant calcifications. No adjacent inflammation or peripancreatic fluidcollections. Pancreatic duct not dilated. ADRENALS: Normal. KIDNEYS/URINARY TRACT: No identified significant cystic or solid masses.No visualized stones. No hydronephrosis or hydroureter. Symmetricenhancement. Urinary bladder is unremarkable. GI: Stomach is decompressed. No dilated or thick-walled loops of bowel appreciated. There is no sign of appendicitis. No significantdiverticular disease. PERITONEUM: No ascites or free air. RETROPERITONEUM: No mass or adenopathy. REPRODUCTIVE: No significant abnormality. VASCULATURE ABDOMEN: No abdominal aortic aneurysm. MUSCULOSKELETAL ABDOMEN PELVIS: Ill-defined sclerotic changes in theposterior elements of S1 and L5 could be degenerative. OTHER: No significant abnormality. IMPRESSION: 1. No evidence of local disease recurrence or metastatic disease in thechest. 2. Unchanged 3 mm nodules in the left upper lobe. 3. Ill-defined sclerotic changes in the posterior elements of S1 and L5 appear unchanged and could be due to degenerative change. Recommendattention on follow-up. THIS IS AN ELECTRONICALLY VERIFIED FINAL REPORT 07/17/2024 4:44 PM - Electronically signed by Lazaro Barrow M.D. AM: AM Report ID: [id number] Reading Location: [place] [address] us Foster Borrero MD PhD IMG CT PROCEDURES Fin al Result * eGFR (07/14/2024 7:54 AM CONVEYOR BELT REPAIRER) eGFR >90 >=60 mL/min/1. 73 m2 Comment: Interpretive Data Reference Interval Normal >/= 90 mL/min/1.73m2 Mildly decreased* 60 - 89 mL/min/1.73m2 Mildly to moderately decreased 45 - 59 mL/min/1.73m2 Moderately to severely decreased 30 - 44 mL/min/1.73m2 Severely decreased 15 - 29 mL/min/1.73m2 Kidney Failure < 15 mL/min/1.73m2 *Relative to young adult level Estimated glomerular filtration rate is determined by the 2020 CKD-EPI equation recommended by the National Kid[employer] (A Unifying Approach to GFR Estimation: Recommendations of the NKF-ASK Task Force on Reassessing the Inclusion of Race in Diagnosing Kidney Disease, JASN 2020). The CKD-EPI equation should not be used for patients with unstable renal function and has not been validated in children and those over 70. Current interpretive data was last reviewed 2021. Blood 07/14/2024 7:54 AM CONVEYOR BELT REPAIRER 07/14/2024 9:06 AM CONVEYOR BELT REPAIRER us Foster Borrero MD PhD LAB BLOOD ORDERABLES Final Result [facility] ([place]) [facility] Department of Laboratories [place], [place] [id number] * Differential, auto (07/14/2024 7:54 AM CONVEYOR BELT REPAIRER) Neutrophil abs 4.4 1.5 - 6.5 K/cumm Imm gran abs 0.1 0.0 - 0.1 K/cumm [facility] ([place]) Lymphocyte abs 1.9 0.8 - 3.3 K/cumm [facility] ([place]) Monocyte abs 0.7 0.2 - 0.8 K/cumm [facility] ([place]) Eosinophil abs 0.1 0.0 - 0.5 K/cumm [facility] ([place]) Basophil abs 0.0 0.0 - 0.1 K/cumm [facility] ([place]) Neutrophil pct 60.9 % [facility] ([place]) Comment: Interpretive Data Percent cell count reference ranges are not reported, since discordance with absolute values may lead to misinterpretation of CBC data. Current Interpretive Data was last revised on 2017. Imm gran pct 0.7 % [facility] ([place]) Comment: Interpretive Data Percent cell count reference ranges are not reported, since discordance with absolute values may lead to misinterpretation of CBC data. Current Interpretive Data was last revised on 2017. Lymphocyte pct 26.9 % [facility] ([place]) Comment: Interpretive Data Percent cell count reference ranges are not reported, since discordance with absolute values may lead to misinterpretation of CBC data. Current Interpretive Data was last revised on 2017. Monocyte pct 9.2 % [facility] ([place]) Comment: Interpretive Data Percent cell count reference ranges are not reported, since discordance with absolute values may lead to misinterpretation of CBC data. Current Interpretive Data was last revised on 2017. Eosinophil pct 1.7 % [facility] ([place]) Comment: Interpretive Data Percent cell count reference ranges are not reported, since discordance with absolute values may lead to misinterpretation of CBC data. Current Interpretive Data was last revised on 2017. Basophil pct 0.6 % [facility] ([place]) Comment: Interpretive Data Percent cell count reference ranges are not reported, since discordance with absolute values may lead to misinterpretation of CBC data. Current Interpretive Data was last revised on 2017. Blood 07/14/2024 7:54 AM CONVEYOR BELT REPAIRER 07/14/2024 9:06 AM CONVEYOR BELT REPAIRER us Foster Borrero MD PhD LAB BLOOD ORDERABLES Final Result [facility] ([place] Department [place] [address] * (ABNORMAL) CBC with auto differential (07/14/2024 7:54 AM CONVEYOR BELT REPAIRER) [facility] WBC 7.2 3.8 - 9.9 K/cumm Hgb 11.0(L) 11.9 - 15.5 g/dL [facility] ([place]) Hct 34.2(L) 35.6 - 45.5 % [facility] ([place]) Plt 264 150 - 400 K/cumm [facility] ([place]) MPV 10.7 9.1 - 12.3 fL [facility] ([place]) RBC 3.84(L) 3.90 - 5.20 M/cumm [facility] ([place]) MCV 89.1 81.3 - 96.4 fL [facility] ([place]) MCH 28.6 27.1 - 33.3 pg [facility] ([place]) MCHC 32.2(L) 32.3 - 35.7 g/dL [facility] ([place]) RDW CV 14.4 11.1 - 14.9 % [facility] ([place]) RDW SD 46.4 35.7 - 48.1 fL [facility] ([place]) NRBC abs 0.00 0.00 - 0.01 K/cumm [facility] ([place]) Blood 07/14/2024 7:54 AM CONVEYOR BELT REPAIRER 07/14/2024 9:06 AM CONVEYOR BELT REPAIRER us Foster Borrero MD PhD LAB BLOOD ORDERABLES Final Result [facility] ([place]) [address] [facility] Department [place] [address] * Comprehensive metabolic panel (07/14/2024 7:54 AM CONVEYOR BELT REPAIRER) [facility] Sodium 141 135 - 145 mmol/L Potassium, pl 4.0 3.3 - 4.9 mmol/L [facility] ([place]) Chloride 105 97 - 110 mmol/L [facility] ([place]) CO2 27 22 - 32 mmol/L [facility] ([place]) Anion gap 9 2 - 15 mmol/L [facility] ([place]) BUN 8 6 - 25 mg/dL [facility] ([place]) Creatinine 0.76 0.60 - 1.10 mg/dL [facility] ([place]) Glucose 133 70 - 199 mg/dL [facility]) Comment: Interpretive Data Fasting glucose >/= 126 mg/dl is diagnostic for diabetes. Fasting is defined as no caloric intake for at least 8 hours. Fasting glucose between 100 mg/dl to 125 mg/dl is diagnostic of prediabetes. In a patient with classic symptoms of hyperglycemia or hyperglycemic crisis, a random glucose >/= 200 mg/dl is diagnostic for diabetes. In the absence of unequivocal hyperglycemia, results should be confirmed by repeat testing. The classification and Diagnosis of Diabetes Diabetes Care 202; 46: S19-S40. Current interpretive data was last revised 2022. Calcium 9.6 8.5 - 10.3 mg/dL [facility]) Bilirubin, total 0.2 0.1 - 1.2 mg/dL [facility] ([place]) Protein, pl 7.8 6.5 - 8.5 g/dL [facility] ([place]) Albumin 3.9 3.5 - 5.0 g/dL [facility] ([place]) Alk phos 109 40 - 130 Units/L [facility] ([place]) ALT 12 7 - 45 Units/L [facility] ([place]) AST 14 10 - 45 Units/L [facility] ([place]) Blood 07/14/2024 7:54 AM CONVEYOR BELT REPAIRER 07/14/2024 9:06 AM CONVEYOR BELT REPAIRER us Foster Borrero MD PhD LAB BLOOD ORDERABLES Final Result [facility] ([place] [address] [facility] Department [place] [address] * COLONOSCOPY (12/29/2020 7:27 AM CDT) Anatomical Region Laterality Modality Other Narrative Procedure Note Lincoln Reynolds MD - 12/29/2020 7:27 AM CDT [facility] Patient Name: Savannah Salgado Procedure Date: 12/29/2020 7:27 AM Date of : 1970 Admit Type: Outpatient Age: 50 Gender: Female Attending MD: Lincoln Reynolds M.D. Room: [facility] END[facility]COPY ROOM 2 Note Status: Finalized Patient Profile: Refer to note in patient chart for documentation of history and physical. Procedure: Colonoscopy Indications: Screening for colorectal malignant neoplasm, Thisis the patient's first colonoscopy Referring MD: Eber Tomlinson M.D. Providers: Lincoln Reynolds M.D. Impression: - Hemorrhoids found on perianal exam. - Diverticulosis in the sigmoid colon. - The examination was otherwise normal. - No specimens collected. Recommendation: - Discharge patient to home. - Resume previous diet. - Continue present medications. - Repeat colonoscopy in 10 years for screening purposes. - Return to primary care physician as previously scheduled. Medicines: Propofol per Anesthesia Complications: No immediate complications. Estimated Blood Loss: Estimated blood loss: none. Procedure: Pre-Anesthesia Assessment: - This assessment was completed [Time ofAssessment] prior to the administration of sedation. The benefits, risks and alternatives of theprocedure and sedation were discussed and informed consentwas obtained. All questions were answered. Please referto the signed informed consent document in the medical record. The bowel preparation used was Miralax via single dose instruction. The bowel preparation used was bisacodyl tablets via single dose instruction.The scope was passed under direct vision. TheColonoscope [id number] was introduced through the anus and advanced to the the cecum, identified by appendiceal orifice and ileocecal valve. The colonoscopy was performed without difficulty. The patient tolerated the procedure well. The qualityof the bowel preparation was good. Findings: Hemorrhoids were found on perianal exam. Multiple small and large-mouthed diverticula were found in thesigmoid colon. The exam was otherwise without abnormality. Electronically signed by Lincoln Reynolds M.D. Lincoln Reynolds M.D. 12/29/2020 8:42:40 AM Number of Addenda: 0 Note Initiated On: 12/29/2020 7:27 AM Procedure Code(s): --- Professional --- G0121, Colorectal cancer screening; colonoscopy on individual not meeting criteria for high risk Diagnosis Code(s): --- Professional --- K57.30, Diverticulosis of large intestine without perforation orabscess without bleeding K64.9, Unspecified hemorrhoids Z12.11, Encounter for screening for malignant neoplasm of colon CPT copyright 2019 [employer]. All rights reserved. The codes documented in this report are preliminary and upon burr machine operator reviewmay be revised to meet current compliance requirements. Recognized by the [employer] for promoting quality in endoscopy Lincoln Reynolds MD ENDOSCOPY PROCEDURES Final Re sult from Last 3 Months or Most Recently Relevant to Health Maintenance Insurance [facility] H[facility]/PPO Address: [address] [address] [place] [address] [facility] [place] [facility] Advance Directives For more information, please contact: [phone] * Full Code (Latest Code Status on File) Date Activated Date Inactivated Comments 12/29/2020 7:31 AM 12/29/2020 1:45 PM * Full Code Date Activated Date Inactivated Comments 12/29/2020 7:31 AM 12/29/2020 7:31 AM * Full Code Date Activated Date Inactivated Comments 04/03/2019 7:16 AM 04/06/2019 10:35 PM Care Teams Shipping And Receiving Specialist Relationship Specialty Start Date End Date Eber Tomlinson MD [address] [employer] [address] [place] [id number] PCP - General Internal Medicine 07/22/24 Long Mehta MD [id number] [facility] # [address] [place] [address] Consulting Physician Radiation Oncology 10/05/19 Héctor Sanford MD [address] [place] [address] [address] [place] [address] Consulting Physician Endocrinology 08/08/20 Se Torres MD [address] [place] [address] [address] [place] [address] Referring Physician Neurosurgery 08/08/20 Huong Klein, SUPERVISOR [employer]ER [address] [place] [address] [address] [place] [address] Nurse Practitioner Medical Oncology 04/05/21 Foster Borrero MD PhD [address] [place] [id number] Consulting Physician Medical Oncology 09/19/21 Sergio He MD [id number] [id number] Referring Physician Obstetrics and Gynecology 04/10/22
--- OUTSIDE RECORDS SUMMARY | 2024-09-05 09:16 | XMS_ITS | Referral Summary ---
Author Organization [facility] [address] Address [address] [place] [address] Phone Care Team Providers Care Sports Management Internship Name Role Phone Long Mehta MD Unavailable Héctor Sanford MD Unavailable [phone] Se Torres MD Unavailable Huong Klein NP Unavailable Foster Borrero MD PhD Unavailable Sergio He MD Unavailable [phone] Eber Tomlinson MD Primary Care Provider [phone] Encounters Date Type Department Care Team Description 08/18/2024 Orders Only [facility] Physicians [facility] [address] [place] [address] Foster Borrero MD PhD 08/17/2024 Orders Only [facility] [address] [place] [address] Isela Ayala RN 08/07/2024 Telephone [facility] Neurosurgery [address] [facility] Floor 1, [address] [place] [phone] Se Torres MD 08/07/2024 Orders Only [facility] Neurosurgery [address] [facility] Floor 1, [address] [place] [id number] Se Torres MD 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) 08/06/2024 2:00 PM CDT Telemedicine [facility] Neurosurgery [address] [facility] Floor 1, [address] [place] [phone] Se Torres MD 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) 08/04/2024 2:28 PM CDT - 08/04/2024 11:59 PM CDT Hospital Encounter [facility] [address] [place] [address] Se Torres MD Malignant neoplasm metastatic to brain (HCC) Discharge Disposition: Discharge to home or self care 07/21/2024 1:15 PM HEALTH DIRECTOR Office Visit [facility] [address] [facility] [address] [place] [address] Foster Borrero MD PhD 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); Malignant neoplasm of middle lobe of right lung (HCC) 07/14/2024 Telephone [facility] [address] [facility] [address] [place] [address] Rashmi Wilder CMA 07/14/2024 7:45 AM HEALTH DIRECTOR Lab [address] [address] Malignant neoplasm of middle lobe of right lung (HCC) 07/14/2024 7:48 AM HEALTH DIRECTOR - 07/14/2024 11:59 PM HEALTH DIRECTOR Hospital Encounter [facility] [address] [place] [address] Malignant neoplasm of middle lobe of right lung (HCC) Discharge Disposition: Discharge to home or self care 07/13/2024 Telephone [facility] [address] [place] [address] Yasmine Rand 06/25/2024 Orders Only [facility] Oncology [address] [facility] [address] [place] [address] Foster Borrero MD PhD 06/24/2024 Documentation [facility] [address] [facility] Floor 6 [place] [address] Gilda Galloway RMA from Last 3 Months Allergies No known active allergies Medications cholecalcifer [...] D-3 Assessment & Plan (07/15/2020 3:26 PM HEALTH DIRECTOR): Low vitamin D of 25 in February/2020 Plan: Continue Vitamin D3- 2000 international units/day Check level with next blood test Assessment & Plan (04/08/2020 3:31 PM HEALTH DIRECTOR): Low vitamin D of 25 in February/2020 [...] clinically. Assessment & Plan (07/15/2020 3:27 PM HEALTH DIRECTOR): Patient with family history of thyroid disease [...] year Assessment & Plan (04/08/2020 3:33 PM HEALTH DIRECTOR): Patient with family history of thyroid disease [...] Patient of the thyroid ultrasound schedule at [facility] for March 24, 2020. Referral to Endocrinology. Hyperparathyroidism 03/18/2020 Assessment & Plan (04/17/2024 5:57 PM HEALTH DIRECTOR): Renal function calcium level in normal range no additional testing or therapy indicated Assessment & Plan (03/31/2023 5:31 PM HEALTH DIRECTOR): Patient's conditions min stable for last 3 [...] 3 Assessment & Plan (07/15/2020 3:25 PM HEALTH DIRECTOR): Elevated PTH of 76 on 03/04/20 Normal calcium of 9.9 Low Vitamin D of 25 Normal GFR 68 This is most probably secondary to vitamin D deficiency Plan Continue Vitamin D 3 We will monitor calcium and PTH Assessment & Plan (04/08/2020 3:30 PM HEALTH DIRECTOR): Elevated PTH of 76 on 03/04/20 Normal calcium of 9.9 Low Vitamin D of 25 Normal GFR 68 This is most probably secondary to vitamin D deficiency Plan We will correct vitamin D level We will monitor calcium and PTH Assessment & Plan (03/18/2020 1:48 PM CDT): Patient's saw her medical nurse oncologist at [facility] on 03/04/2020 in his note he references to she has a out slightly elevated PTH/68 and low vitamin-D/25 and states he wants her to follow-up with Endocrinology. This patient has lung cancer with metastasis to her brain. She lives in [place] and she does not drive at this time secondary to seizure and is convenient for her to go to [facility] for Endocrinology appointment as opposed going back to [place].. 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 Approval is pending. Recommendations by [...] 11/30/2016 Assessment & Plan (04/17/2024 6:00 PM HEALTH DIRECTOR): Blood pressure 140/88 pressures at home have been better patient's blood pressure still is in no acceptable range will continue amlodipine 2.5 mg daily. Patient's renal functions reviewed within normal range. Assessment & Plan (09/27/2023 3:38 PM CDT): Patient's blood pressure remains well controlled patient is tolerating medications. She is taking amlodipine 2.5 mg daily. Assessment & Plan (03/31/2023 5:27 PM HEALTH DIRECTOR): Hypertension very well controlled patient tolerating medications [...] medications Assessment & Plan (03/31/2021 6:28 PM HEALTH DIRECTOR): Blood pressure slightly decreased today she feels [...] at home than in his in office. [facility] health care 11/30/2016 Assessment & Plan (09/27/2023 3:37 PM CDT): History and physical exam completed health risk assessment health maintenance reviewed and addressed. Oncology visit notes reviewed. New change since her last visit with me she is having some left lower leg weakness sensation of feeling off balance. She has been referred to physical therapy [facility] this has been 2 months she has not been able to get in to see them appears though his so mad of insurance approval. No other new problems patient has not gotten her immunization is suggested a year ago. This may also relate to her insurance. Assessment & Plan (06/22/2022 4:55 PM HEALTH DIRECTOR): 51-year-old lady here for annual exam her [...] maintenance reviewed in addressed. 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 and he not yet available [...] exam patient also has hypertension well controlled Immunizations Immunization Administration Dates Next Due Influenza, Quadrivalent, Abida l Culture-based MDCK, Preservative Free, Antibiotic Free, Intramuscular 03/04/2020 Influenza, Quadrivalent, Spl it, Preservative Free, Intramuscular 03/31/2021 Influenza, Unspecified 04/03/2024(Deferred: Marika ent Refused) Moderna SARS-CoV-2 Monovalen t Vaccination (12+ YRS) 10/18/2020,10/18/2020,09/20/2020,09/20 Tdap 03/13/2019 Social History Tobacco Use Types Packs/Day Years [...] on file Legal Sex Female 7:47 AM HEALTH DIRECTOR Gender Identity Not on file Sexual Orientation Not on file Last Filed Vital Signs Vital Sign Reading Time Taken Comments Blood Pressure 129/84 07/21/2024 1:24 PM HEALTH DIRECTOR Pulse 87 07/21/2024 1:24 PM HEALTH DIRECTOR Temperature 37.3 C (99.2 F) 07/21/2024 1:24 PM HEALTH DIRECTOR Respiratory Rate 18 07/21/2024 1:24 PM HEALTH DIRECTOR Oxygen Saturation 98% 07/21/2024 1:24 PM HEALTH DIRECTOR Inhaled Oxygen Concentration - - Weight 93.1 kg (205 lb 3.2 oz) 07/21/2024 1:24 P M HEALTH DIRECTOR no shoes Height 167.6 cm (5' 6 ) 07/21/2024 1:24 PM HEALTH DIRECTOR Body Mass Index 33.12 07/21/2024 1:24 PM HEALTH DIRECTOR Plan of Treatment Not on file Procedures Procedure Name Priority Date/Time Associated Diagnosis Comments MRI BRAIN W WO CONTRAST Schedule Routine, Read Routine (OP Routine) 08/04/2024 4:48 PM CDT Malignant neoplasm metastatic to brain (HCC) CT CHEST ABDOMEN PELVIS W CONTRAST Schedule Routine, Read Routine (OP Routine) 07/14/2024 9:03 AM HEALTH DIRECTOR Malignant neoplasm of middle lobe of right lung (HCC) EGFR Routine 07/14/2024 7:54 AM HEALTH DIRECTOR Malignant neoplasm of middle lobe of right lung (HCC) DIFFERENTIAL AUTO Routine 07/14/2024 7:5 4 AM HEALTH DIRECTOR Malignant neoplasm of middle lobe of right lung (HCC) CBC WITH AUTO DIFFERENTIAL Routine 07/14/2024 7:54 AM HEALTH DIRECTOR Malignant neoplasm of middle lobe of right lung (HCC) COMPREHENSIVE METABOLIC PANEL Routine 07/14/2024 7:54 AM HEALTH DIRECTOR Malignant neoplasm of middle lobe of right [...] by: Deborah Arroyo M.D. Se Torres MD [facility] [place] MRI PROCEDURES Final Re sult * CT chest abdomen pelvis with contrast (07/14/2024 9:03 AM HEALTH DIRECTOR) Anatomical Region Laterality Modality Body N/A Computed Tomogra phy 07/17/2024 3:42 PM HEALTH DIRECTOR Narrative 07/17/2024 4:44 PM HEALTH DIRECTOR EXAM DESCRIPTION: CT CHEST ABDOMEN PELVIS W [...] Lazaro Barrow M.D. AM: AM Report ID: [id number] Reading Location: [id number] Procedure Note Lazaro Barrow MD - 07/17/2024 [...] Lazaro Barrow M.D. AM: AM Report ID: [id number] Reading Location: [place] [address] us Foster Borrero MD PhD IMG CT PROCEDURES Fin al Result * eGFR (07/14/2024 7:54 AM HEALTH DIRECTOR) eGFR >90 >=60 mL/min/1. 73 m2 Comment: [...] last reviewed 2021. Blood 07/14/2024 7:54 AM HEALTH DIRECTOR 07/14/2024 9:06 AM HEALTH DIRECTOR us Foster Borrero MD PhD LAB BLOOD ORDERABLES Final Result [facility] [address] [facility] Department [place] [address] * Differential, auto (07/14/2024 7:54 AM HEALTH DIRECTOR) Neutrophil abs 4.4 1.5 - 6.5 K/cumm Imm gran abs 0.1 0.0 - 0.1 K/cumm [facility]) Lymphocyte abs 1.9 0.8 - 3.3 K/cumm [facility] ([place]) Monocyte abs 0.7 0.2 - 0.8 K/cumm [facility] ([place]) Eosinophil abs 0.1 0.0 - 0.5 K/cumm [facility] ([place]) Basophil abs 0.0 0.0 - 0.1 K/cumm [facility] ([place]) Neutrophil pct 60.9 % [facility] ([place]) Comment: Interpretive Data Percent cell count reference [...] revised on 2017. Blood 07/14/2024 7:54 AM HEALTH DIRECTOR 07/14/2024 9:06 AM HEALTH DIRECTOR us Foster Borrero MD PhD LAB BLOOD ORDERABLES Final Result [facility] [address] [facility] Department [place] [address] * (ABNORMAL) CBC with auto differential (07/14/2024 7:54 AM HEALTH DIRECTOR) WBC 7.2 3.8 - 9.9 K/cumm Hgb [...] 46.4 35.7 - 48.1 fL [facility]) NRBC abs 0.00 0.00 - 0.01 K/cumm [facility] ([place]) Blood 07/14/2024 7:54 AM HEALTH DIRECTOR 07/14/2024 9:06 AM HEALTH DIRECTOR us Foster Borrero MD PhD LAB BLOOD ORDERABLES Final Result [facility] [address] [facility] Department [place] [address] * Comprehensive metabolic panel (07/14/2024 7:54 AM HEALTH DIRECTOR) Sodium 141 135 - 145 mmol/L Potassium, [...] classification and Diagnosis of Diabetes Diabetes Care 2021; 46: S19-S40. Current interpretive data was last [...] [facility]) Blood 07/14/2024 7:54 AM HEALTH DIRECTOR 07/14/2024 9:06 AM HEALTH DIRECTOR us Foster Borrero MD PhD LAB BLOOD ORDERABLES Final Result [facility]) [address] [facility] Department [place] [address] * COLONOSCOPY (12/29/2020 7:27 AM CDT) Anatomical Region Laterality Modality Other Narrative Procedure Note Lincoln Reynolds MD - 12/29/2020 7:27 AM CDT [facility] Patient Name: Savannah Salgado Procedure Date: 12/29/2020 7:27 AM Date of : 1970 Admit Type: Outpatient Age: 50 Gender: Female Attending MD: Lincoln Reynolds M.D. Room: [facility] ENDOSCOPY ROOM 2 Note Status: Finalized Patient [...] scope was passed under direct vision. TheColonoscope [id number] was introduced through the anus and advanced [...] malignant neoplasm of colon CPT copyright 2019 [employer]. All rights reserved. The codes documented in this report are preliminary and upon cradle slide maker reviewmay be revised to meet current compliance requirements. Recognized by the [place] [employer] for promoting quality in endoscopy Lincoln Reynolds MD ENDOSCOPY PROCEDURES Final Re sult from Last 3 Months or Most Recently Relevant to Health Maintenance Insurance [facility] CHOICE PLUS [facility] Advance Directives For more information, please contact: [phone] * Full Code (Latest Code Status on File) Date Activated Date Inactivated Comments 12/29/2020 7:31 AM 12/29/2020 1:45 PM * Full Code Date Activated Date Inactivated Comments 12/29/2020 7:31 AM 12/29/2020 7:31 AM * Full Code Date Activated Date Inactivated Comments 04/03/2019 7:16 AM 04/06/2019 10:35 PM Care Teams Sports Management Internship Relationship Specialty Start Date End Date Eber Tomlinson MD [address] [place] [address] PCP - General Internal Medicine 07/22/24 Long Mehta MD [address] [facility] [address] [place] [address] Consulting Physician Radiation Oncology 10/05/19 Héctor Sanford MD [address] [facility] [address] [place] [address] Consulting Physician Endocrinology 08/08/20 Se Torres MD [address] [facility] [address] [place] [address] Referring Physician Neurosurgery 08/08/20 Huong Klein, FAN INSTALLER [address] [facility] [place] [address] Nurse Practitioner Medical Oncology 04/05/21 Foster Borrero MD PhD [address] [place] [address] Consulting Physician Medical Oncology 09/19/21 Sergio He MD [address] [facility] [address] [place] [address] Referring Physician Obstetrics and Gynecology 04/10/22
--- OUTSIDE RECORDS SUMMARY | 2024-09-05 09:16 | XMS_ITS | Encounter Summary ---
Author Organization [facility] Address [address] [place] [address] Phone Care Team Providers Care Internet Project Manager Name Role Phone Eber Tomlinson MD Primary Care Provider [phone] Long Mehta MD Unavailable Manolo Carrasco MD Unavailable Héctor Sanford MD Unavailable [phone] Se Torres MD Unavailable [phone] Huong Klein NP Unavailable [phone] Morris Carlton MD Unavailable Foster Borrero MD PhD Unavailable Sergio He MD Unavailable [phone] Eber Tomlinson MD Primary Care Provider Encounter Details Date Type Department Care Team (Late st Contact Info) Description 04/15/2017 Orders Only [facility] [address] [place] [address] Eber Tomlinson MD [address] [place] [address] Social History Tobacco Use Types Packs/Day Years Used Date Smoking Tobacco: Never Smokeless Tobacco: Never Comments Unknown Sex and Gender Information Value Date Recorded Sex Assigned at Not on file Legal Sex Female 7:47 AM STARCH COOKER Gender Identity Not on file Sexual Orientation Not on file documented as of this encounter Plan of Treatment Not on file documented as of this encounter Procedures Procedure Name Priority Date/Time Associated Diagnosis Comments SCAN - RADIOLOGY/IMAGING 04/15/2017 4:12 PM STARCH COOKER documented in this encounter Results * SCAN - RADIOLOGY/IMAGING (04/15/2017 4:12 PM STARCH COOKER) Anatomical Region Laterality Modality Other Eber Tomlinson MD Final Resu lt documented in this encounter Visit Diagnoses Not on filedocumented in this encounter Care Teams Internet Project Manager Relationship Specialty Start Date End Date Eber Tomlinson MD PCP - General 11/24/15 07/21/24 Eber Tomlinson MD [address] [place] [address] PCP - General Internal Medicine 07/22/24 Long Mehta MD [address] [place] [address] Consulting Physician Radiation Oncology 10/05/19 Manolo Carrasco MD [address] [place] [address] Referring Physician Hematology and Oncology 07/01/20 04/04/21 Héctor Sanford MD [address] [facility] [place] [address] Consulting Physician Endocrinology 08/08/20 Se Torres MD [address] [place] [address] [address] [place] [address] Referring Physician Neurosurgery 08/08/20 Huong Klein, MERCHANDISE PLANNER [address] [place] [address] [place], [place] [address], [place] [address] Nurse Practitioner Medical Oncology 04/05/21 Morris Carlton MD [address] [place] [address] [address] [place], [place] [address], [place] [address] Consulting Physician Medical Oncology 05/17/21 09/18/21 Foster Borrero MD PhD [address] [place] [address] Consulting Physician Medical Oncology 09/19/21 Sergio He MD [address] [address] Referring Physician Obstetrics and Gynecology 04/10/22 documented as of this encounter
--- OUTSIDE RECORDS SUMMARY | 2024-09-05 09:16 | XMS_ITS | Encounter Summary ---
Author Organization [facility] Address [address] [place] [address] Phone Care Team Providers Care Scallop Cutter Machine Name Role Phone Eber Tomlinson MD Primary Care Provider [phone] Long Mehta MD Unavailable Héctor Sanford MD Unavailable [phone] Se Torres MD Unavailable [phone] Huong Klein NP Unavailable [phone] Foster Borrero MD PhD Unavailable Sergio He MD Unavailable [phone] Eber Tomlinson MD Primary Care Provider + [phone] Encounter Details Date Type Department Care Team (Late st Contact Info) Description 03/31/2022 Orders Only [facility] [address] [place] [address] Scanning, Provider Social History Tobacco Use Types Packs/Day Years Used Date Smoking Tobacco: Never Smokeless Tobacco: Never Alcohol Use Standard Drinks/Week Comments Never 0 (1 standard drink = 0.6 oz pur e alcohol) AUDIT-C Answer Date Recorded Q1: How often do you have a drink containing alc ohol? 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 TEACHER Gender Identity Not on file Sexual Orientation Not on file documented as of this encounter Plan of Treatment Not on file documented as of this encounter Procedures Procedure Name Priority Date/Time Associated Diagnosis Comments SCAN - RADIOLOGY/IMAGING 03/31/2022 documented in this encounter Results * SCAN - RADIOLOGY/IMAGING (03/31/2022) Anatomical Region Laterality Modality Other us Provider Scanning Final Result documented in this encounter Visit Diagnoses Not on filedocumented in this encounter Care Teams Scallop Cutter Machine Relationship Specialty Start Date End Date Eber Tomlinson MD PCP - General 11/24/15 07/21/24 Eber Tomlinson MD [address] [place] [address] PCP - General Internal Medicine 07/22/24 Long Mehta MD [address] [facility] [address] [place] [address] Consulting Physician Radiation Oncology 10/05/19 Héctor Sanford MD [address] [place] [address] [place] [address] Consulting Physician Endocrinology 08/08/20 Se Torres MD [address] [place] [address] [place] [address] Referring Physician Neurosurgery 08/08/20 Huong Klein, ARCGIS DEVELOPER [address] [place] [address] [address] [place] [address] Nurse Practitioner Medical Oncology 04/05/21 Foster Borrero MD PhD [address] [place] [address] Consulting Physician Medical Oncology 09/19/21 Sergio He MD [address] [address] Referring Physician Obstetrics and Gynecology 04/10/22 documented as of this encounter
--- OUTSIDE RECORDS SUMMARY | 2024-09-05 09:16 | XMS_ITS ---
Author Organization [facility] [address] Address [address] [place] [address] Phone Care Team Providers Care Compressor Operator Portable Name Role Phone Long Mehta MD Unavailable Héctor Sanford MD Unavailable [phone] Se Torres MD Unavailable Huong Klein NP Unavailable [phone] Foster Borrero MD PhD Unavailable Sergio He MD Unavailable [phone] Eber Tomlinson MD Primary Care Provider [phone] Active Problems Problem Noted Date Diagnosed Date [...] D-3 Assessment & Plan (07/15/2020 3:26 PM HIGH SCHOOL SCIENCE TUTOR): Low vitamin D of 25 in February/2020 Plan: Continue Vitamin D3- 2000 international units/day Check level with next blood test Assessment & Plan (04/08/2020 3:31 PM HIGH SCHOOL SCIENCE TUTOR): Low vitamin D of 25 in February/2020 [...] clinically. Assessment & Plan (07/15/2020 3:27 PM HIGH SCHOOL SCIENCE TUTOR): Patient with family history of thyroid disease [...] year Assessment & Plan (04/08/2020 3:33 PM HIGH SCHOOL SCIENCE TUTOR): Patient with family history of thyroid disease [...] Patient of the thyroid ultrasound schedule at [facility] for March 24, 2020. Referral to Endocrinology. Hyperparathyroidism 03/18/2020 Assessment & Plan (04/17/2024 5:57 PM HIGH SCHOOL SCIENCE TUTOR): Renal function calcium level in normal range no additional testing or therapy indicated Assessment & Plan (03/31/2023 5:31 PM HIGH SCHOOL SCIENCE TUTOR): Patient's conditions min stable for last 3 [...] 3 Assessment & Plan (07/15/2020 3:25 PM HIGH SCHOOL SCIENCE TUTOR): Elevated PTH of 76 on 03/04/20 Normal calcium of 9.9 Low Vitamin D of 25 Normal GFR 68 This is most probably secondary to vitamin D deficiency Plan Continue Vitamin D 3 We will monitor calcium and PTH Assessment & Plan (04/08/2020 3:30 PM HIGH SCHOOL SCIENCE TUTOR): Elevated PTH of 76 on 03/04/20 Normal calcium of 9.9 Low Vitamin D of 25 Normal GFR 68 This is most probably secondary to vitamin D deficiency Plan We will correct vitamin D level We will monitor calcium and PTH Assessment & Plan (03/18/2020 1:48 PM CDT): Patient's saw her supervisor plastics oncologist at [facility] on 03/04/2020 in his note he references to she has a out slightly elevated PTH/68 and low vitamin-D/25 and states he wants her to follow-up with Endocrinology. This patient has lung cancer with metastasis to her brain. She lives in [place] and she does not drive at this time secondary to seizure and is convenient for her to go to [facility] for Endocrinology appointment as opposed going back to [place].. 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 Approval is pending. Recommendations [...] 11/30/2016 Assessment & Plan (04/17/2024 6:00 PM HIGH SCHOOL SCIENCE TUTOR): Blood pressure 140/88 pressures at home have been better patient's blood pressure still is in no acceptable range will continue amlodipine 2.5 mg daily. Patient's renal functions reviewed within normal range. Assessment & Plan (09/27/2023 3:38 PM CDT): Patient's blood pressure remains well controlled patient is tolerating medications. She is taking amlodipine 2.5 mg daily. Assessment & Plan (03/31/2023 5:27 PM HIGH SCHOOL SCIENCE TUTOR): Hypertension very well controlled patient tolerating medications [...] medications Assessment & Plan (03/31/2021 6:28 PM HIGH SCHOOL SCIENCE TUTOR): Blood pressure slightly decreased today she feels [...] at home than in his in office. [facility] care 11/30/2016 Assessment & Plan (09/27/2023 3:37 PM CDT): History and physical exam completed health risk assessment health maintenance reviewed and addressed. Oncology visit notes reviewed. New change since her last visit with me she is having some left lower leg weakness sensation of feeling off balance. She has been referred to physical therapy [facility] this has been 2 months she has not been able to get in to see them appears though his so mad of insurance approval. No other new problems patient has not gotten her immunization is suggested a year ago. This may also relate to her insurance. Assessment & Plan (06/22/2022 4:55 PM HIGH SCHOOL SCIENCE TUTOR): 51-year-old lady here for annual exam her [...] maintenance reviewed in addressed. Patient recently start head of digital advertising & integration was records and he not yet available in the chart.. Patient's flu shot is updated for 2020. Patient's history is significant for malignant neoplasm [...] exam patient also has hypertension well controlled Current Treatment and Therapy Plans Lorlatinib PO 28 Day Cycle - Lung started September 06, 2021* Plan Start Date: 08/20/2023 Plan Provider:Foster Borrero MD PhD Linked Problems Malignant neoplasm metastati c to brain (HCC)Malignant neoplasm of middle lobe of right lung (HCC) Treatment Medications Current Day (Day 1 , Cycle 3 - Planned for 08/17/2024) Next Day (Day 1, Cycle 4 - Planned for 09/14/2024) lorlatinib (LORBRENA) lorlatinib (LORBRE NA) 25 mg tablet No medications scheduled. Past Treatment and Therapy Plans No past plan information found. Radiation Treatments * Course C1 WHOLE BRAIN 04/06/2019 - 04/21/2019 Treatment Period Energy Fraction Dose Fractions Total Dose Plans Planned WHOLE BRAIN 04/06/2019 - 04/21/2019 300 10 / 3,000 Reference Points Delivered BRAIN 04/06/2019 - 04/21/2019 3,000 Lifetime Dose Tracking * Chemical Lifetime Dose Automatic Entry Manual Entr y DLP 997 mGycm 997 mGycm 0 mGycm
--- OUTSIDE RECORDS SUMMARY | 2024-09-05 09:16 | XMS_ITS | Encounter Summary ---
Author Organization [facility] Address [address] [place] [address] Phone Care Team Providers Care Perpetual Inventory Clerk Name Role Phone Eber Tomlinson MD Primary Care Provider [phone] Long Mehta MD Unavailable Héctor Sanford MD Unavailable [phone] Se Torres MD Unavailable Huong Klein NP Unavailable [phone] Morris Carlton MD Unavailable Foster Borrero MD PhD Unavailable Sergio He MD Unavailable [phone] Eber Tomlinson MD Primary Care Provider + [phone] Encounter Details Date Type Department Care Team (Late st Contact Info) Description 07/08/2021 Orders Only [facility] [address] [place] [address] Scanning, Provider Social History Tobacco [...] points, staff should administer the PHQ-9) 0 03/18/2020 Comments No Sex and Gender Information Value Date Recorded Sex Assigned at Not on file Legal Sex Female 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 Gender Identity Not on file Sexual Orientation Not on file documented as of this encounter Plan of Treatment Not on file documented as of this encounter Procedures Procedure Name Priority Date/Time Associated Diagnosis Comments SCAN - RADIOLOGY/IMAGING 07/08/2021 documented in this encounter Results * SCAN - RADIOLOGY/IMAGING (07/08/2021) Anatomical Region Laterality Modality Other us Provider Scanning Final Result documented in this encounter Visit Diagnoses Not on filedocumented in this encounter Care Teams Perpetual Inventory Clerk Relationship Specialty Start Date End Date Eber Tomlinson MD PCP - General 11/24/15 07/21/24 Eber Tomlinson MD [address] [place] [address] PCP - General Internal Medicine 07/22/24 Long Mehta MD [address] [facility] [address] [place] [address] Consulting Physician Radiation Oncology 10/05/19 Héctor Sanford MD [address] [place] [address] Consulting Physician Endocrinology 08/08/20 Se Torres MD [address] [place] [address] [facility] [address] [place] [address] Referring Physician Neurosurgery 08/08/20 Huong Klein, BEHAVIOR ANALYST [address] [place] [address] [address] [place] [address] Nurse Practitioner Medical Oncology 04/05/21 Morris Carlton MD [address] [place] [address] [facility] [place] [address] Consulting Physician Medical Oncology 05/17/21 09/18/21 Foster Borrero MD PhD [address] [place] [address] Consulting Physician Medical Oncology 09/19/21 Sergio He MD [address] [address] Referring Physician Obstetrics and Gynecology 04/10/22 documented as of this encounter
--- OUTSIDE RECORDS SUMMARY | 2024-09-05 09:16 | XMS_ITS | Encounter Summary ---
Author Organization [facility] Address [address] [place] [address] Care Team Providers Care Creative Director Name Role Phone Eber Tomlinson MD Primary Care Provider [phone] Long Mehta MD Unavailable Manolo Carrasco MD Unavailable Héctor Sanford MD Unavailable [phone] Se Torres MD Unavailable Huong Klein NP Unavailable [phone] Morris Carlton MD Unavailable Foster Borrero MD PhD Unavailable Sergio He MD Unavailable [phone] Eber Tomlinson MD Primary Care Provider + [phone] Encounter Details Date Type Department Care Team (Late st Contact Info) Description 02/25/2020 Telephone [facility] [address] [place] [address] Deborah Moore, RT Social History Tobacco Use Types Packs/Day Years Used Date Smoking Tobacco: Never Smokeless Tobacco: Never Alcohol Use Standard Drinks/Week Comments Never 0 (1 standard drink = 0.6 oz pur e alcohol) AUDIT-C Answer Date Recorded Frequency of Alcohol Consumption Never 05/28/2019 Average Number of Drinks Not on file 020 Frequency of Binge Drinking Not on file 01/2020 PHQ-2 Answer Date Recorded PHQ-2 Score 0 03/13/2019 Comments Unknown Sex and Gender Information Value Date Recorded Sex Assigned at Not on file 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 Gender Identity Not on file Sexual Orientation Not on file documented as of this encounter Plan of Treatment Not on file documented as of this encounter Visit Diagnoses Not on filedocumented in this encounter Care Teams Creative Director Relationship Specialty Start Date End Date Eber Tomlinson MD PCP - General 11/24/15 07/21/24 Eber Tomlinson MD [address] [facility] [address] PCP - General Internal Medicine 07/22/24 Long Mehta MD [address] [facility] [address] [place] [address] Consulting Physician Radiation Oncology 10/05/19 Manolo Carrasco MD [address] [facility] [address] [place] [address] Referring Physician Hematology and Oncology 07/01/20 04/04/21 Héctor Sanford MD [address] [place] [address] [place] [address] Consulting Physician Endocrinology 08/08/20 Se Torres MD [address] [place] [address] [place] [address] Referring Physician Neurosurgery 08/08/20 Huong Klein, BRATTICE BUILDER [address] [facility] [address] [place] [address] Nurse Practitioner Medical Oncology 04/05/21 Morris Carlton MD [address] [place] [address] [address] [place] [address] Consulting Physician Medical Oncology 05/17/21 09/18/21 Foster Borrero MD PhD [address] [place] [address] Consulting Physician Medical Oncology 09/19/21 Sergio He MD [address] [address] Referring Physician Obstetrics and Gynecology 04/10/22 documented as of this encounter
--- OUTSIDE RECORDS SUMMARY | 2024-09-05 09:16 | XMS_ITS | Encounter Summary ---
Author Organization [facility] Address [address] [place] [address] Phone Care Team Providers Care Press Assistant And Feeder Name Role Phone Eber Tomlinson MD Primary Care Provider [phone] Long Mehta MD Unavailable Manolo Carrasco MD Unavailable Héctor Sanford MD Unavailable [phone] Se Torres MD Unavailable Huong Klein NP Unavailable Morris Carlton MD Unavailable [phone] Foster Borrero MD PhD Unavailable Sergio He MD Unavailable [phone] Eber Tomlinson MD Primary Care Provider Encounter Details Date Type Department Care Team (Late st Contact Info) Description 06/10/2020 Orders Only [facility] [address] [place] [address] Scanning, Provider Social History Tobacco [...] file 01/2020 PHQ-2 Answer Date Recorded PHQ-2 Total Score (If total score is 3 or more points, staff should administer the PHQ-9) 0 03/18/2020 Comments Unknown Sex and Gender Information Value Date Recorded Sex Assigned at Not on file 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 Gender Identity Not on file Sexual Orientation Not on file documented as of this encounter Plan of Treatment Not on file documented as of this encounter Procedures Procedure Name Priority Date/Time Associated Diagnosis Comments SCAN - RADIOLOGY/IMAGING 06/10/2020 documented in this encounter Results * SCAN - RADIOLOGY/IMAGING (06/10/2020) Anatomical Region Laterality Modality Other us Provider Scanning Edited Result - Final documented in this encounter Visit Diagnoses Not on filedocumented in this encounter Care Teams Press Assistant And Feeder Relationship Specialty Start Date End Date Eber Tomlinson MD PCP - General 11/24/15 07/21/24 Eber Tomlinson MD [address] [place] [address] PCP - General Internal Medicine 07/22/24 Long Mehta MD [address] [place], [place] [address] Consulting Physician Radiation Oncology 10/05/19 Manolo Carrasco MD [address] [place] [address] Referring Physician Hematology and Oncology 07/01/20 04/04/21 Héctor Sanford MD [address] [place] [address] [address] [place] [address] Consulting Physician Endocrinology 08/08/20 Se Torres MD [address] [place] [address] [place] [address] Referring Physician Neurosurgery 08/08/20 Huong Klein, SCIENTIFIC PUBLICATIONS EDITOR [address] [place] [address] [place] [address] Nurse Practitioner Medical Oncology 04/05/21 Morris Carlton MD [address] [place] [address] [place] [address] Consulting Physician Medical Oncology 05/17/21 09/18/21 Foster Borrero MD PhD [address] [place] [address] Consulting Physician Medical Oncology 09/19/21 Sergio He MD [address] [id number] Referring Physician Obstetrics and Gynecology 04/10/22 documented as of this encounter
--- OUTSIDE RECORDS SUMMARY | 2024-09-05 09:16 | XMS_ITS | Encounter Summary ---
Author Organization [facility] Address [address] [place] [address] Care Team Providers Care Aviation Support Equipment Repairer Name Role Phone Eber Tomlinson MD Primary Care Provider [phone] Long Mehta MD Unavailable Manolo Carrasco MD Unavailable Héctor Sanford MD Unavailable [phone] Se Torres MD Unavailable Huong Klein NP Unavailable [phone] Morris Carlton MD Unavailable Foster Borrero MD PhD Unavailable Sergio He MD Unavailable [phone] Eber Tomlinson MD Primary Care Provider Encounter Details Date Type Department Care Team (Late st Contact Info) Description 12/24/2019 Telephone [facility] [address] [place] [address] Se Torres MD [address] [place] [address] Social History Tobacco Use Types Packs/Day Years [...] on file 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 Gender Identity Not on file Sexual Orientation Not on file documented as of this encounter Plan of Treatment Not on file documented as of this encounter Visit Diagnoses Not on filedocumented in this encounter Care Teams Aviation Support Equipment Repairer Relationship Specialty Start Date End Date Eber Tomlinson MD PCP - General 11/24/15 07/21/24 Eber Tomlinson MD [address] [place] [address] PCP - General Internal Medicine 07/22/24 Long Mehta MD [address] [place] [address] Consulting Physician Radiation Oncology 10/05/19 Manolo Carrasco MD [address] [place] [address] Referring Physician Hematology and Oncology 07/01/20 04/04/21 Héctor Sanford MD [address] [facility] [address] Consulting Physician Endocrinology 08/08/20 Se Torres MD [address] [place] [address] [address] [place] [address] Referring Physician Neurosurgery 08/08/20 Huong Klein, ELECTRICAL ACCESSORIES I ASSEMBLER [address] [place] [address] [address] [place] [address] Nurse Practitioner Medical Oncology 04/05/21 Morris Carlton MD [address] [place] [address] [place] [address] Consulting Physician Medical Oncology 05/17/21 09/18/21 Foster Borrero MD PhD [address] [place] [address] Consulting Physician Medical Oncology 09/19/21 Sergio He MD [address] [id number] Referring Physician Obstetrics and Gynecology 04/10/22 documented as of this encounter
--- OUTSIDE RECORDS SUMMARY | 2024-09-05 09:16 | XMS_ITS | Clinical Summary ---
Author Organization [facility] Address [address] [place] [address] Phone Care Team Providers Care Patient Safety Coordinator Name Role Phone Provider, Not On File Primary Care Provider Unav ailable Allergies No known active allergies Medications amLODIPine (NORVASC) 2.5 MG TabletIndicati ons:Hypertensi on Take 1 Tablet by mouth daily. Indications: High Blood Pressure Active levETIRAcetam (KEPPRA) 500 MG TabletIndicati ons:Seizure,Br ain Cancer Take 1 Tablet by mouth 2 times daily. Indications: Seizure, Brain Cancer Active potassium chloride CR (KLORCON) 10 MEQ Tablet Controlled ReleaseIndicat ions:Hypokalem ia Take 1 Tablet by mouth 2 times daily. Indications: Low Amount of Potassium in the Blood Active lorlatinib 25 MG TabletIndicati ons:Non-Small- Cell Lung Carcinoma,w/ brain mets Take 2 Tablets by mouth every other day. Take 2 tablets (50 mg) by mouth every other day at approximately the same time each day with 8 ounces of water. Indications: Dap-Gqrir-Ulez Lung Cancer, w/ brain mets Active Cholecalcifero l (Vitamin D3) 2000 UNIT CapsuleIndicat ions:Vitamin D Deficiency Take 1 Capsule by mouth daily. soft gel cap Indications: Vitamin D Deficiency 4 Active otherIndicatio ns:weight loss Take 1 Dose by mouth every evening. Christine Nutrition Apple Cider Vinegar Gummie Indications: weight loss 4 Active Apoaequorin (Prevagen) 10 MG CapsuleIndicat ions:nutrition al support/ brain health Take 1 Capsule by mouth daily. Indications: nutritional support/ brain health Active Social History Tobacco Use Types Packs/Day Years Used Date Smoking Tobacco: Never Assessed Comments Unknown Sex and Gender Information Value Date Recorded Sex Assigned at Not on file Legal Sex Female 11:01 AM ASSET ANALYST Gender Identity Not on file Sexual Orientation Not on file Last Filed Vital Signs Vital Sign Reading Time Taken Comments Blood Pressure 118/68 05/27/2024 9:17 AM ASSET ANALYST Pulse 82 05/27/2024 9:17 AM ASSET ANALYST Temperature 36.3 C (97.3 F) 05/27/2024 9:17 AM ASSET ANALYST Respiratory Rate 17 05/27/2024 9:17 AM ASSET ANALYST Oxygen Saturation 95% 05/27/2024 9:17 AM ASSET ANALYST Inhaled Oxygen Concentration - - Weight 93.9 kg (207 lb) 04/24/2024 1:11 PM ASSET ANALYST Height 167.6 cm (5' 6 ) 04/30/2024 10:32 AM ASSET ANALYST Body Mass Index 33.41 04/24/2024 1:11 PM ASSET ANALYST Plan of Treatment Health Maintenance Due Date Last Done Comments Hepatitis C Virus (HCV) Screening 1972 Mammogram 1972 Hepatitis B Immunization (1 of 3 - 19+ 3-dose series) 12/16/1991 Zoster Immunization (1 of 2) 12/16/1991 Pap Smear 1993 Cervical Cancer Screening (CCS) 2002 HPV/Cotest 2002 SARS-COV-2 Immunization (3 - Moderna risk series) 11/15/2020 10/18/2020, 09/20/2020 Cologuard 2022 Immunochemical Fecal Occult Blood 2022 Pneumococcal Immunization (5 0+ years) (1 of 1 - PCV) 2022 Influenza Immunization (Seas on Ended) 2025 03/31/2021, 03/04/2020 Colonoscopy 12/29/2030 12/29/2020 Colorectal Cancer Screening 12/29/2030 Respiratory Syncytial Virus (RSV) Immunization (Adult) (1 - 1-dose 75+ series) 12/16/2047 12/29/2020 TdaP Immunization Completed 03/13/2019 Meningococcal Immunization (ACWY) Aged Out No longer eligible b ased on patient's age to complete this topic Rotavirus Immunization Aged Out No lo nger eligible based on patient's age to complete this topic Insurance MEDICAID [facility] Advance Directives * Full Code (Latest Code Status on File) Date Activated Date Inactivated Comments 04/24/2024 1:39 PM Care Teams Patient Safety Coordinator Relationship Specialty Start Date End Date Provider, Not On File DE PCP - General 04/23/24
== END 2024-09-05 09:14 | disposition home or self-care (01) ==
PROVIDERS: PCP Internal Medicine; Visit Provider Obstetrics & Gynecology
DX: Z12.31 Encounter for screening mammogram for malignant neoplasm of breast (principal); R92.8 Other abnormal and inconclusive findings on diagnostic imaging of breast
CPT/HCPCS: 77063; 77067